=== PATIENT | male | born 1955 | race Two or more races ===

== ENCOUNTER 2018-11-27 00:04 | Inpatient (IN) | payer OTHER | END 2018-11-29 17:00 | disposition home or self-care (01) | LOC: ER 00:04 → TELE 00:05 → TELE-CENTR 08:00 | DX: I25.118 Atherosclerotic heart disease of native coronary artery with other forms of angina pectoris (principal); N17.9 Acute kidney failure, unspecified; E11.21 Type 2 diabetes mellitus with diabetic nephropathy; I50.20 Unspecified systolic (congestive) heart failure; I13.0 Hypertensive heart and chronic kidney disease with heart failure and stage 1 through stage 4 chronic kidney disease, or unspecified chronic kidney disease; M86.672 Other chronic osteomyelitis, left ankle and foot; E11.22 Type 2 diabetes mellitus with diabetic chronic kidney disease; N18.9 Chronic kidney disease, unspecified; Z95.1 Presence of aortocoronary bypass graft ==

== ENCOUNTER 2019-06-11 21:34 | Inpatient (IN) | payer OTHER ==
[~2019-06-11] VITALS: Ht 162.6 cm; Wt 107.8 kg
[~2019-06-11 21:34] MED LIST: AMPI500C8 PO; ASPI-404 PO; CARV3.1240 PO; CLOP75TA28 PO; FERR27TA2 PO; GABA100C9 PO; LEVO750T2 PO; LISI2.5T47 PO; METF-370 PO; SACC250C PO
[2019-06-11 22:25] LABS: Basophils # (auto) 0.2 10 ^3/uL (0-0.2); Basophils % (auto) 1.2 % (0.0-2.0); Eosinophils # (auto) 0.1 10 ^3/uL (0-0.8); Eosinophils % (auto) 1.1 % (0.0-7.0); Hematocrit 39.8 % (41.0-53.0); Hemoglobin 13.3 g/dL (13.5-17.5); Lymphocytes # (auto) 1.5 10 ^3/uL (0.4-5.4); Lymphocytes % (auto) 11.7 % (10.0-50.0); Mean Corpuscular Hemoglobin 28.9 pg (28.0-32.0); Mean Corpuscular Hgb Conc. 33.3 g/dL (32.0-36.0); Mean Corpuscular Volume 86.8 fL (80.0-100.0); Monocytes # (auto) 0.6 10 ^3/uL (0-1.3); Monocytes % (auto) 4.5 % (0.0-12.0); Neutrophils # (auto) 10.7 10 ^3/uL (1.6-8.6); Neutrophils % (auto) 81.5 % (37.0-80.0); Platelet Count (auto) 166 10^3/uL (140-450); Red Blood Cells 4.58 10^6/uL (4.5-5.90); Red Cell Distribution Width 14.8 % (11.8-14.3); White Blood Cell 13.1 10^3/uL (4.4-10.8)
[2019-06-11] MEDS ORDERED: ASPirin 81 mg TAB PO ONE (22:30)
[2019-06-11 22:44] LABS: Albumin 3.7 g/dL (3.4-5.0); BUN/Creatinine Ratio 15.3; Calcium 8.9 mg/dL (8.5-10.1); Potassium 4.1 mmol/L (3.5-5.1)
[2019-06-11 22:50] LABS: Bilirubin, Total 0.9 mg/dL (0.2-1.0); Magnesium 1.4 mg/dL (1.6-2.6); Total Protein 7.2 g/dL (6.4-8.2)
[2019-06-11 23:03] LABS: INR 1.04 (0.9-1.15); Partial Thromboplastin Time 26.1 sec (23.64-32.05)
[2019-06-12] MEDS ORDERED: POTASSIUM CHL 20MEQ/100ML 100 ML IV ONE (00:30)
[2019-06-12] MEDS ORDERED: THIAMINE INJ 100 MG in SODIUM CHLORIDE 0.9% 1,000 ML IV ONE (00:30)
[2019-06-12] MEDS ORDERED: POTASSIUM EFFERVESENT TAB 25 MEQ PO ONE (00:30)
[2019-06-12] MEDS ORDERED: ONDANSETRON HCL 4 MG/2 ML VIAL IV ONE (00:30)
[2019-06-12] MEDS ORDERED: THIAMINE 100mg/ml INJ (200mg/2ml VIAL) ONE (01:07)
[2019-06-12] MEDS ORDERED: levETIRAcetam 500 MG/5ML INJ IV ONE (01:08)
[2019-06-12] MEDS ORDERED: ENOXAPARIN SOD 80 MG/0.8ML SYRINGE SC ONE (01:30)
[2019-06-12] MEDS ORDERED: ACETAMINOPHEN 325 MG TAB PO PRN (02:45)
[2019-06-12] MEDS ORDERED: ATORVASTATIN 20 MG TAB PO ONE (02:45)
[2019-06-12] MEDS ORDERED: ONDANSETRON HCL 4 MG/2 ML VIAL IV PRN (02:45)
[2019-06-12] MEDS ORDERED: DEXTROSE (50%) 50ML SYRG IV PRN (02:45)
[2019-06-12] MEDS ORDERED: MORPHINE SULF INJ 2 MG/ML SYRINGE 1ML IV PRN (02:45)
[2019-06-12] MEDS ORDERED: TEMAZEPAM 15 MG CAP PO PRN (02:45)
[2019-06-12] MEDS ORDERED: NITROGLYCERIN 0.4 MG SL TAB SL PRN (02:45)
[2019-06-12] MEDS: SODIUM CHLORIDE 0.9% 1,000 ML IV SCH ×2 (02:54→19:15)
[2019-06-12 03:47] LABS: BUN/Creatinine Ratio 16.8; Calcium 8.6 mg/dL (8.5-10.1); Potassium 3.5 mmol/L (3.5-5.1)
[2019-06-12] MEDS: ACCU-CHEK COMFORT CURVE STRIP VI SCH ×4 (05:40→23:42)
[2019-06-12] MEDS: InsuLIN REG 1unit/0.01ml Soln (100units/ml) SC SCH ×4 (05:45→23:43)
[2019-06-12 07:26] LABS: Amphetamine Screen, Urine NEGATIVE (NEGATIVE); Barbiturate Scree,Urine NEGATIVE (NEGATIVE); Benzodiazephine Screen, Urine NEGATIVE (NEGATIVE); Cannabinoid Screen, Urine NEGATIVE (NEGATIVE); Cocaine Screen, Urine NEGATIVE (NEGATIVE); Opiate Scree,Urine NEGATIVE (NEGATIVE); Phencyclidine Screen, Urine NEGATIVE (NEGATIVE)
[2019-06-12 07:32] LABS: Alcohol, Urine < 3.0 mg/dL (0-5)
[2019-06-12] MEDS: MAGNESIUM SULFATE 1GM/100ML 100 ML IV SCH ×2 (08:23→10:31)
[2019-06-12] MEDS ORDERED: HEPARIN DRIP/D5W 100UNITS/ML 250 ML IV SCH (08:56)
[2019-06-12] MEDS ORDERED: HEPARIN SODIUM (PORCINE) 5000 UNITS/ML 1ML VIAL IV ONE (09:00)
[2019-06-12] MEDS ORDERED: LISINOPRIL 5 MG TAB PO SCH (10:00)
[2019-06-12] MEDS: ASPirin 81 mg TAB PO SCH (10:54)
[2019-06-12] MEDS: FUROSEMIDE 20 MG/2 ML VIAL IV SCH (10:54)
[2019-06-12] MEDS: CARVEDILOL 3.125 MG TAB PO SCH ×2 (10:55→20:41)
[2019-06-12] MEDS: CLOPIDOGREL BISULFATE 75 MG TAB PO SCH (10:56)
[2019-06-12] MEDS ORDERED: ENOXAPARIN SOD 100 MG/1 ML SYRINGE SC SCH (14:00)
[2019-06-12 17:13] LABS: INR 1.09 (0.9-1.15); Partial Thromboplastin Time 53.3 sec (23.64-32.05)
[2019-06-12 18:06] VITALS: BP 113/61
[2019-06-12 19:34] VITALS: BP 113/61
[2019-06-12 20:00] VITALS: BP 117/56
[2019-06-12] MEDS: ATORVASTATIN 20 MG TAB PO SCH (20:41)
[2019-06-12] MEDS: GABAPENTIN 400 MG CAP PO SCH (20:42)
[2019-06-12] MEDS ORDERED: ATORVASTATIN 20 MG TAB PO SCH (22:00)
[2019-06-12 22:29] LABS: INR 1.09 (0.9-1.15); Partial Thromboplastin Time 48.5 sec (23.64-32.05)
[2019-06-13] VITALS (7 sets, daily range): BP systolic 98–134; BP diastolic 45–88
[2019-06-13] MEDS ORDERED: SODIUM CHLORIDE 0.9% 500 ML IV SCH (00:01)
[2019-06-13] MEDS: ACCU-CHEK COMFORT CURVE STRIP VI SCH ×3 (05:04→18:24)
[2019-06-13] MEDS: GABAPENTIN 400 MG CAP PO SCH ×3 (05:04→22:44)
[2019-06-13] MEDS: InsuLIN REG 1unit/0.01ml Soln (100units/ml) SC SCH ×3 (05:05→18:25)
[2019-06-13 05:28] LABS: Basophils # (auto) 0 10 ^3/uL (0-0.2); Basophils % (auto) 0.5 % (0.0-2.0); Eosinophils # (auto) 0.2 10 ^3/uL (0-0.8); Eosinophils % (auto) 2.4 % (0.0-7.0); Hematocrit 36.4 % (41.0-53.0); Hemoglobin 12.6 g/dL (13.5-17.5); Lymphocytes # (auto) 2.1 10 ^3/uL (0.4-5.4); Lymphocytes % (auto) 22.7 % (10.0-50.0); Mean Corpuscular Hemoglobin 29.9 pg (28.0-32.0); Mean Corpuscular Hgb Conc. 34.6 g/dL (32.0-36.0); Mean Corpuscular Volume 86.2 fL (80.0-100.0); Monocytes # (auto) 0.8 10 ^3/uL (0-1.3); Monocytes % (auto) 8.5 % (0.0-12.0); Neutrophils # (auto) 6.2 10 ^3/uL (1.6-8.6); Neutrophils % (auto) 65.9 % (37.0-80.0); Platelet Count (auto) 150 10^3/uL (140-450); Red Blood Cells 4.22 10^6/uL (4.5-5.90); Red Cell Distribution Width 14.9 % (11.8-14.3); White Blood Cell 9.4 10^3/uL (4.4-10.8)
[2019-06-13 05:40] LABS: INR 1.07 (0.9-1.15); Partial Thromboplastin Time 54.4 sec (23.64-32.05)
[2019-06-13 05:49] LABS: Calcium 8.6 mg/dL (8.5-10.1); Magnesium 2.1 mg/dL (1.6-2.6); Potassium 3.2 mmol/L (3.5-5.1)
[2019-06-13 05:56] LABS: BUN/Creatinine Ratio 14.5
[2019-06-13] MEDS ORDERED: LIDOCAINE 2%HCL (LOCAL ANESTH.) INJ 20ML MDV ONE (07:13)
[2019-06-13] MEDS ORDERED: IOHEXOL 350 MG/ML 100ML IJ ONE ×2 (07:13→07:48)
[2019-06-13] MEDS ORDERED: ANGIOMAX 250 MG VIAL IV ONE (07:47)
[2019-06-13] MEDS ORDERED: MIDAZOLAM HCL 1MG/1ML-2 ML VIAL ONE (07:48)
[2019-06-13] MEDS ORDERED: SODIUM CHL 0.9% 0 ML ONE (07:48)
[2019-06-13] MEDS ORDERED: fentaNYL CITRATE 100 MCG/2 ML VL ONE (07:48)
[2019-06-13] MEDS ORDERED: HEPARIN SODIUM (PORCINE) 5000 UNITS/ML 1ML VIAL ONE (08:48)
[2019-06-13] MEDS ORDERED: FUROSEMIDE 20 MG/2 ML VIAL ONE (09:23)
[2019-06-13] MEDS ORDERED: CARVEDILOL 3.125 MG TAB PO SCH (10:00)
[2019-06-13] MEDS: FUROSEMIDE 20 MG/2 ML VIAL IV SCH (10:00)
[2019-06-13] MEDS: SACUBITRIL-VALSARTAN 24mg/26mg TAB PO SCH ×2 (10:00→22:00)
[2019-06-13] MEDS: CARVEDILOL 3.125 MG TAB PO SCH ×2 (10:00→22:45)
[2019-06-13] MEDS: CLOPIDOGREL BISULFATE 75 MG TAB PO SCH (10:45)
[2019-06-13] MEDS: ASPirin 81 mg TAB PO SCH (10:46)
[2019-06-13 11:38] LABS: INR 1.05 (0.9-1.15); Partial Thromboplastin Time 33.4 sec (23.64-32.05)
[2019-06-13] MEDS ORDERED: POTASSIUM CHL 20 Meq TABLET PO ONE (17:00)
[2019-06-13] MEDS: ATORVASTATIN 20 MG TAB PO SCH (22:44)
[2019-06-14 00:42] VITALS: BP 128/67
[2019-06-14] MEDS: InsuLIN REG 1unit/0.01ml Soln (100units/ml) SC SCH ×3 (00:53→12:48)
[2019-06-14 05:00] VITALS: BP 110/71
[2019-06-14] MEDS: ACCU-CHEK COMFORT CURVE STRIP VI SCH ×3 (06:07→12:29)
[2019-06-14] MEDS: GABAPENTIN 400 MG CAP PO SCH ×2 (06:20→14:03)
[2019-06-14 09:00] VITALS: BP 151/86
[2019-06-14] MEDS: SACUBITRIL-VALSARTAN 24mg/26mg TAB PO SCH (09:42)
[2019-06-14] MEDS: CARVEDILOL 3.125 MG TAB PO SCH (09:43)
[2019-06-14] MEDS: CLOPIDOGREL BISULFATE 75 MG TAB PO SCH (09:43)
[2019-06-14] MEDS ORDERED: ASPirin 81 mg TAB PO SCH (10:00)
[2019-06-14 10:33] LABS: Basophils # (auto) 0.1 10 ^3/uL (0-0.2); Basophils % (auto) 0.9 % (0.0-2.0); Eosinophils # (auto) 0.3 10 ^3/uL (0-0.8); Eosinophils % (auto) 3.6 % (0.0-7.0); Hematocrit 37.3 % (41.0-53.0); Hemoglobin 12.5 g/dL (13.5-17.5); Lymphocytes # (auto) 1.5 10 ^3/uL (0.4-5.4); Lymphocytes % (auto) 20.5 % (10.0-50.0); Mean Corpuscular Hemoglobin 29.2 pg (28.0-32.0); Mean Corpuscular Hgb Conc. 33.4 g/dL (32.0-36.0); Mean Corpuscular Volume 87.3 fL (80.0-100.0); Monocytes # (auto) 0.6 10 ^3/uL (0-1.3); Monocytes % (auto) 8.1 % (0.0-12.0); Neutrophils # (auto) 4.7 10 ^3/uL (1.6-8.6); Neutrophils % (auto) 66.9 % (37.0-80.0); Platelet Count (auto) 153 10^3/uL (140-450); Red Blood Cells 4.27 10^6/uL (4.5-5.90); Red Cell Distribution Width 14.9 % (11.8-14.3); White Blood Cell 7.1 10^3/uL (4.4-10.8)
[2019-06-14 10:57] LABS: BUN/Creatinine Ratio 14.4; Calcium 8.9 mg/dL (8.5-10.1); Potassium 4.2 mmol/L (3.5-5.1)
[2019-06-14 14:16] VITALS: BP 112/57
== END 2019-06-14 16:25 | disposition home or self-care (01) | DRG 174 ==
LOC: EDBD 21:34 → ER 21:35 → TELE 21:36 → DOU IN ICU 06-12 17:49 → TELE-CENTR 06-13 17:16
PROVIDERS: ADMIT Nurse Practitioner; ATTEND Internal Medicine
PROC: 4A023N7 Measurement of Cardiac Sampling and Pressure, Left Heart, Percutaneous Approach (ICD-10-PCS; principal; 2019-06-13)
PROC: B211YZZ Fluoroscopy of Multiple Coronary Arteries using Other Contrast (ICD-10-PCS; 2019-06-13)
PROC: B213YZZ Fluoroscopy of Multiple Coronary Artery Bypass Grafts using Other Contrast (ICD-10-PCS; 2019-06-13)
PROC: 027034Z Dilation of Coronary Artery, One Artery with Drug-eluting Intraluminal Device, Percutaneous Approach (ICD-10-PCS; 2019-06-13)
PROC: B218YZZ Fluoroscopy of Left Internal Mammary Bypass Graft using Other Contrast (ICD-10-PCS; 2019-06-13)
PROC: B215YZZ Fluoroscopy of Left Heart using Other Contrast (ICD-10-PCS; 2019-06-13)
DX: I21.4 Non-ST elevation (NSTEMI) myocardial infarction (principal); N17.0 Acute kidney failure with tubular necrosis; I50.43 Acute on chronic combined systolic (congestive) and diastolic (congestive) heart failure; I25.810 Atherosclerosis of coronary artery bypass graft(s) without angina pectoris; E11.22 Type 2 diabetes mellitus with diabetic chronic kidney disease; Z68.41 Body mass index [BMI] 40.0-44.9, adult; N18.3 Chronic kidney disease, stage 3 (moderate); E66.9 Obesity, unspecified; E11.51 Type 2 diabetes mellitus with diabetic peripheral angiopathy without gangrene; E11.40 Type 2 diabetes mellitus with diabetic neuropathy, unspecified; I42.9 Cardiomyopathy, unspecified; I13.0 Hypertensive heart and chronic kidney disease with heart failure and stage 1 through stage 4 chronic kidney disease, or unspecified chronic kidney disease; D63.8 Anemia in other chronic diseases classified elsewhere; Z95.1 Presence of aortocoronary bypass graft; Z98.61 Coronary angioplasty status; Z79.899 Other long term (current) drug therapy; Z91.030 Bee allergy status
CPT/HCPCS: 36415; 71045; 80048; 80053; 80307; 82962; 83735; 83880; 84484; 85025; 85379; 85610; 85730; 87081; 92937; 93005; 93459; 93926; 96365; 96367; 96372; 99152; 99153; C1874; G0378; J1815; J2250; J2405; J3480; J7060

== ENCOUNTER 2020-02-16 15:21 | Inpatient (IN) | payer OTHER ==
[~2020-02-16] VITALS: Ht 172.7 cm; Wt 103.0 kg
[~2020-02-16 15:21] MED LIST changes: -ASPI-404 PO; +ASPI-543 PO; -LEVO750T2 PO; +LEVO750T8 PO; -LISI2.5T47 PO
[2020-02-16] MEDS ORDERED: SODIUM CHLORIDE 0.9% 1,000 ML IV ONE ×2 (17:15)
[2020-02-16] MEDS ORDERED: ACETAMINOPHEN 500 MG TAB PO PRN (17:15)
[2020-02-16] MEDS ORDERED: SODIUM CHLORIDE 0.9% 1,000 ML IV SCH (17:15)
[2020-02-16] MEDS ORDERED: MORPHINE SULF INJ 2 MG/ML SYRINGE 1ML IV PRN (17:15)
[2020-02-16] MEDS ORDERED: NITROGLYCERIN 0.4 MG SL TAB SL PRN (17:15)
[2020-02-16] MEDS ORDERED: PIPERACILLIN-TAZOB 3.375GM 100 ML IV ONE (17:15)
[2020-02-16 17:47] LABS: Urine WBC None Seen /hpf (0 - 3)
[2020-02-16 18:15] LABS: Basophils # (auto) 0.1 10 ^3/uL (0-0.2); Basophils % (auto) 0.9 % (0.0-2.0); Eosinophils # (auto) 0 10 ^3/uL (0-0.8); Eosinophils % (auto) 0.3 % (0.0-7.0); Hematocrit 39.2 % (41.0-53.0); Hemoglobin 13.5 g/dL (13.5-17.5); Lymphocytes % (auto) 8.3 % (10.0-50.0); Mean Corpuscular Hemoglobin 29.5 pg (28.0-32.0); Mean Corpuscular Hgb Conc. 34.5 g/dL (32.0-36.0); Mean Corpuscular Volume 85.6 fL (80.0-100.0); Monocytes # (auto) 0.7 10 ^3/uL (0-1.3); Monocytes % (auto) 6.1 % (0.0-12.0); Neutrophils % (auto) 84.4 % (37.0-80.0); Platelet Count (auto) 172 10^3/uL (140-450); Red Blood Cells 4.57 10^6/uL (4.5-5.90); Red Cell Distribution Width 14.6 % (11.8-14.3); White Blood Cell 11.8 10^3/uL (4.4-10.8)
[2020-02-16 18:31] LABS: Albumin 3.1 g/dL (3.4-5.0); Calcium 8.7 mg/dL (8.5-10.1); Magnesium 1.2 mg/dL (1.6-2.6); Potassium 3.8 mmol/L (3.5-5.1)
[2020-02-16 18:34] LABS: Urine Bacteria NONE SEEN /hpf (None Seen); Urine Blood 1+ /uL (Negative); Urine Specific Gravity 1.024 (1.001-1.035)
[2020-02-16 18:40] LABS: BUN/Creatinine Ratio 10.9; Bilirubin, Total 1.4 mg/dL (0.2-1.0); CRP High Sensitivity 1.79 mg/dL (< 0.3)
[2020-02-16 18:52] LABS: INR 1.02 (0.9-1.15); Partial Thromboplastin Time 27.4 sec (23.0-31.2)
[2020-02-16 21:50] VITALS: BP 152/89
--- NOTE | 2020-02-16 21:50 | NUR ---
Telemetry admit from YESSI GALLARDO admitted to Telemetry unit after SBAR received. Patient oriented to SAGE MESSINA, RN primary RN, unit, room, bed, and unit policies regarding patient care and visiting hours. Patient now on continuous telemetry monitoring, tele box # 2 and telemetry reading on arrival to unit is SR-70's. Patient placed on bedside oxygen, weighed by bedscale and encouraged to call if they need something. All questions and concerns addressed, patient verbalized understanding.
[2020-02-16] MEDS: BUDESONIDE (INHALATION) 180 MCG IH IN SCH (22:00)
[2020-02-16] MEDS: ALBUTEROL SULF HFA 90MCG INH 200DOSE IN SCH (22:00)
[2020-02-16 22:13] VITALS: BP 152/89
[2020-02-16] MEDS: DOXYCYCLINE 100MG/250ML 250 ML IV SCH (22:26)
--- NOTE | 2020-02-16 22:30 | NUR ---
Admission Patient does not know all home medication doses. will endorse to dayshift nurse.
--- NOTE | 2020-02-16 23:30 | NUR ---
In House Covid Swab In house covid swab taken and walked down to lab.
[2020-02-17] MEDS ORDERED: FUROSEMIDE 100 MG/10ML VIAL IV ONE (00:15)
[2020-02-17] MEDS ORDERED: HYDROcodone-ACET 5/325MG TAB PO PRN (00:15)
[2020-02-17] MEDS ORDERED: NITROGLYCERIN 0.4 MG SL TAB SL PRN (00:15)
[2020-02-17] MEDS ORDERED: DOCUSATE SOD 100 MG CAP PO PRN (00:15)
[2020-02-17] MEDS ORDERED: ONDANSETRON HCL 4 MG/2 ML VIAL IV PRN (00:15)
[2020-02-17] MEDS ORDERED: ALUM & MAG HYDROX-SIMETH LIQ(MAALOX) 30 ML PO PRN (00:15)
[2020-02-17] MEDS ORDERED: LORazepam 0.5 MG TAB PO PRN (00:15)
[2020-02-17] MEDS ORDERED: DEXTROSE (50%) 50ML SYRG IV PRN (00:15)
[2020-02-17] MEDS ORDERED: MORPHINE SULF INJ 2 MG/ML SYRINGE 1ML IV PRN ×2 (00:15)
[2020-02-17] MEDS ORDERED: ACETAMINOPHEN 325 MG TAB PO PRN (00:15)
[2020-02-17 00:47] VITALS: BP 152/89
[2020-02-17] MEDS: MAGNESIUM SULFATE 1GM/100ML 100 ML IV SCH ×3 (02:43→06:11)
[2020-02-17 04:12] LABS: Urine Bacteria FEW /hpf (None Seen); Urine Blood TRACE /uL (Negative); Urine Specific Gravity 1.007 (1.001-1.035); Urine WBC <1 /hpf (0 - 3)
[2020-02-17 04:20] LABS: Alcohol, Urine < 3.0 mg/dL (0-10); Amphetamine Screen, Urine NEGATIVE (NEGATIVE); Barbiturate Scree,Urine NEGATIVE (NEGATIVE); Benzodiazephine Screen, Urine NEGATIVE (NEGATIVE); Cannabinoid Screen, Urine NEGATIVE (NEGATIVE); Cocaine Screen, Urine NEGATIVE (NEGATIVE); Opiate Scree,Urine NEGATIVE (NEGATIVE); Phencyclidine Screen, Urine NEGATIVE (NEGATIVE)
[2020-02-17 05:00] VITALS: BP 159/92
[2020-02-17] MEDS: FUROSEMIDE 40 MG/4 ML VIAL IV SCH ×2 (06:00→17:46)
--- NOTE | 2020-02-17 06:00 | NUR ---
Lasix Refusal Patient refusal 06 kashmir, he said "I don't want it because I took it not to long ago". Educated patient but still refused.
[2020-02-17] MEDS ORDERED: MAGNESIUM SULFATE 1GM/100ML 100 ML IV ONE (06:07)
[2020-02-17] MEDS: GABAPENTIN 100 MG CAP PO SCH ×3 (06:12→22:06)
[2020-02-17] MEDS: hydrALAZINE HCL 20 MG/ML VL IV PRN ×2 (06:12→22:05)
[2020-02-17] MEDS: ACCU-CHEK COMFORT CURVE STRIP VI SCH ×4 (06:13→22:06)
[2020-02-17] MEDS: InsuLIN REG 1unit/0.01ml Soln (100units/ml) SC SCH ×4 (06:13→22:07)
[2020-02-17] MEDS: ALBUTEROL SULF HFA 90MCG INH 200DOSE IN SCH (06:25)
[2020-02-17] MEDS: BUDESONIDE (INHALATION) 180 MCG IH IN SCH (06:25)
[2020-02-17 06:42] LABS: Basophils # (auto) 0 10 ^3/uL (0-0.2); Basophils % (auto) 0.5 % (0.0-2.0); Eosinophils # (auto) 0.1 10 ^3/uL (0-0.8); Eosinophils % (auto) 0.7 % (0.0-7.0); Hematocrit 38.6 % (41.0-53.0); Hemoglobin 13.2 g/dL (13.5-17.5); Lymphocytes # (auto) 1.3 10 ^3/uL (0.4-5.4); Lymphocytes % (auto) 14.7 % (10.0-50.0); Mean Corpuscular Hemoglobin 29.3 pg (28.0-32.0); Mean Corpuscular Hgb Conc. 34.2 g/dL (32.0-36.0); Mean Corpuscular Volume 85.7 fL (80.0-100.0); Monocytes # (auto) 0.7 10 ^3/uL (0-1.3); Monocytes % (auto) 7.6 % (0.0-12.0); Neutrophils # (auto) 6.7 10 ^3/uL (1.6-8.6); Neutrophils % (auto) 76.5 % (37.0-80.0); Nucleated Red Blood Cells % 0.1 %; Platelet Count (auto) 187 10^3/uL (140-450); Red Cell Distribution Width 14.5 % (11.8-14.3); White Blood Cell 8.7 10^3/uL (4.4-10.8)
[2020-02-17 06:59] LABS: Albumin 2.9 g/dL (3.4-5.0); Calcium 8.2 mg/dL (8.5-10.1); Potassium 3.2 mmol/L (3.5-5.1)
[2020-02-17 07:06] LABS: BUN/Creatinine Ratio 9.8; Bilirubin, Total 1.6 mg/dL (0.2-1.0); Total Protein 6.6 g/dL (6.4-8.2)
--- NOTE | 2020-02-17 07:40 | NUR ---
opening note Assumed care of patient from NOC RN Magnolia. No s/s of distress noted. Bed is in lowest locked position, call light is within reach and side rails up x2. Updated patient on plan of care and patient verbalized understanding. Will continue to monitor q1hr and PRN.
[2020-02-17 08:31] VITALS: BP 128/74
[2020-02-17] MEDS: DexAMETHasone SOD PHOS 10MG/1ML VIAL INJ IV SCH ×2 (09:45→10:00)
[2020-02-17] MEDS: ASPirin 81 mg TAB PO SCH (09:45)
[2020-02-17] MEDS: DOXYCYCLINE 100MG/250ML 250 ML IV SCH (09:45)
[2020-02-17] MEDS: CARVEDILOL 3.125 MG TAB PO SCH ×2 (09:46→22:05)
[2020-02-17] MEDS: FLORASTOR (S. BOULARDII) 250 MG CAP PO SCH (09:47)
[2020-02-17] MEDS: ENOXAPARIN SOD 40 MG/0.4 ML SYRINGE SC SCH ×2 (09:48→10:00)
[2020-02-17] MEDS: LISINOPRIL 5 MG TAB PO SCH (09:48)
[2020-02-17] MEDS ORDERED: ASCORBIC ACID 1,000 MG TAB PO SCH (10:00)
[2020-02-17] MEDS ORDERED: ZINC SULFATE 220mg CAP or TAB PO SCH (10:00)
[2020-02-17] MEDS ORDERED: CHOLECALCIFEROL (VITD3) 2,000 UNIT CAP PO SCH (10:00)
--- NOTE | 2020-02-17 10:01 | NUR ---
refusal patient refused Decadron, and Lovenox. patient stated "I'm not comfortable taking those medications, if i don't even know what my covid results are i rather not." Educated patient on the risk of refusal, patient verbalized understanding, but still refusing.
--- NOTE | 2020-02-17 10:49 | NUR ---
Nutrition Consult/assessment Note please see attached link for complete assessment Est energy needs ABW 86 [id number] 5 kcal (23-25 kcal/kg ABW), Est protein needs: 86-94g (1.0-1.1 g/kg ABW). Will reassess prn. Addendum: 02/17/20 at [address] Amended: Links added.
[2020-02-17] MEDS ORDERED: POTASSIUM EFFERVESENT TAB 25 MEQ PO ONE (12:00)
--- NOTE | 2020-02-17 12:00 | NUR ---
WOUND CARE NOTE: IN TO SEE PATIENT AT THIS TIME PER WOUND CARE CONSULT REQUEST. PATIENT ADMITTED TO [facility] WITH DIAGNOSIS OF ACUTE PNA, R/O COVID 19. WOUND PHOTOS TAKEN UPON ADMIT BY BEDSIDE NURSE FOR REFERENCE. CURRENT ANA MARIA SCORE IS 17. PATIENT IS FULLY AMBULATORY. PATIENT STATES THAT HE IS DIABETIC, WITH CHRONIC DFU ULCERS TO BILATERAL FEET THAT ARE BEING MANAGED AT [facility]. PATIENT HAS OSTEOMYELITIS TO HIS LEFT FOOT STUMP. RIGHT FOOT HAS CALLOUSED DFU TO THE RIGHT # 5 TOE STUMP. THERE IS AN OPEN WOUND, MEASURING 1 X 1 X 0.5 CM, WITHIN CALLOUSED WOUND. LEFT TRANSMETATARSAL STUMP IS NOTED TO HAVE A LARGED CALLOUSED DFU, WITH AN OPEN AREA MEASURING 0.7 X 1.2 X 0.7 CM. THERE IS PALPABLE BONE NOTED WITHIN WOUND BED. ALL WOUND STATS CAN BE FOUND WITHIN WOUND ASSESSMENT INTERVENTION, LINKED TO THIS NOTE. PACKED WOUNDS WITH THERAHONEY GAUZE, COVERING WOUND WITH OPTIFOAM AG. WRAPPED EACH FOOT WITH LARGE KERLIX, SECURED WITH TAPE. RECOMMEND: EOD/PRN DRESSING CHANGE, DIETARY CONSULT, SKIN/WOUND CARE PLAN, CONTINUED MONITORING BY WOUND CARE TEAM. Addendum: 02/17/20 at 1608 by Nataliia Joyner RN Amended: Links added.
--- NOTE | 2020-02-17 12:45 | NUR ---
physician rounding Dr Sanchez at bedside. MD updated patient on plan of care and patient verbalized understanding. New orders received, will follow though.
[2020-02-17 13:00] VITALS: BP 138/82
[2020-02-17 17:05] VITALS: BP 121/76
--- NOTE | 2020-02-17 19:00 | NUR ---
end of shift note Endorsed care to NOC RN. No s/s of distress noted. NOC RN aware that patient is negative and that day shift Charge was notified.
--- NOTE | 2020-02-17 19:30 | NUR ---
Opening Shift Note Assumed care of patient, awake and alert. No S/S of distress/SOB or pain. Instructed on POC and to call for assist PRN, will continue to monitor for changes Q1hr and PRN. Patient aware of being transferred to a different unit
--- NOTE | 2020-02-17 19:40 | NUR ---
Patient Transferred Patient transferred via wheelchair, patient tolerated well. No status change.
--- NOTE | 2020-02-17 20:32 | NUR ---
Report/SBAR Report/Sbar given to nurse Moya.
--- NOTE | 2020-02-17 20:35 | NUR ---
Patient transferred from [facility] results negative. SBAR received. Patient tolerated transfer well. Will orient patient to unit and get new telemetry box from emergency medical technician. No pain or SOB noted from patient. Patient in the lowest possible position with call light within reach.
[2020-02-17 22:00] VITALS: BP 156/88
[2020-02-17] MEDS: ATORVASTATIN 20 MG TAB PO SCH (22:16)
[2020-02-18] VITALS (7 sets, daily range): BP systolic 122–155; BP diastolic 71–90
[2020-02-18] MEDS: FUROSEMIDE 40 MG/4 ML VIAL IV SCH ×2 (05:55→18:00)
[2020-02-18] MEDS: GABAPENTIN 100 MG CAP PO SCH ×3 (05:56→21:53)
[2020-02-18 06:18] LABS: Basophils # (auto) 0.1 10 ^3/uL (0-0.2); Basophils % (auto) 0.7 % (0.0-2.0); Eosinophils # (auto) 0.3 10 ^3/uL (0-0.8); Eosinophils % (auto) 3.4 % (0.0-7.0); Hematocrit 38.3 % (41.0-53.0); Hemoglobin 13.4 g/dL (13.5-17.5); Lymphocytes % (auto) 24.9 % (10.0-50.0); Mean Corpuscular Hemoglobin 29.9 pg (28.0-32.0); Mean Corpuscular Volume 85.4 fL (80.0-100.0); Monocytes # (auto) 0.8 10 ^3/uL (0-1.3); Monocytes % (auto) 10.6 % (0.0-12.0); Neutrophils # (auto) 4.7 10 ^3/uL (1.6-8.6); Neutrophils % (auto) 60.4 % (37.0-80.0); Nucleated Red Blood Cells % 0.2 %; Platelet Count (auto) 192 10^3/uL (140-450); Red Blood Cells 4.49 10^6/uL (4.5-5.90); Red Cell Distribution Width 14.8 % (11.8-14.3); White Blood Cell 7.8 10^3/uL (4.4-10.8)
[2020-02-18] MEDS: ACCU-CHEK COMFORT CURVE STRIP VI SCH ×4 (06:22→21:53)
[2020-02-18] MEDS: InsuLIN REG 1unit/0.01ml Soln (100units/ml) SC SCH ×4 (06:22→21:53)
[2020-02-18 06:40] LABS: BUN/Creatinine Ratio 14.6; Calcium 8.7 mg/dL (8.5-10.1); Potassium 3.4 mmol/L (3.5-5.1)
--- NOTE | 2020-02-18 07:45 | NUR ---
Opening Shift Note Assumed care of patient, awake and alert. No S/S of distress/SOB or pain. Instructed on POC and to call for assist PRN, will continue to monitor for changes Q1hr and PRN. Fall precaution in place per safety protocol.
[2020-02-18] MEDS: CARVEDILOL 3.125 MG TAB PO SCH ×2 (10:06→21:53)
[2020-02-18] MEDS: ASPirin 81 mg TAB PO SCH (10:06)
[2020-02-18] MEDS: cefTRIAXone 1GM/50ML D5W 50 ML IV SCH ×2 (10:06→22:44)
[2020-02-18] MEDS: LISINOPRIL 5 MG TAB PO SCH (10:07)
[2020-02-18] MEDS: FLORASTOR (S. BOULARDII) 250 MG CAP PO SCH (10:07)
[2020-02-18] MEDS: hydrALAZINE HCL 20 MG/ML VL IV PRN (14:25)
[2020-02-18] MEDS ORDERED: POTASSIUM EFFERVESENT TAB 25 MEQ PO ONE (19:00)
--- NOTE | 2020-02-18 19:00 | NUR ---
Opening Shift Note Assumed care of patient, awake and alert. No S/S of distress/SOB or pain. Instructed on POC and to call for assist PRN, will continue to monitor for changes Q1hr and PRN. Patient in the lowest possible position with call light within reach.
[2020-02-18] MEDS: ATORVASTATIN 20 MG TAB PO SCH (21:53)
--- NOTE | 2020-02-18 22:30 | NUR ---
IV insertion IV access obtained, via clean sterile technique by inserting 22 gauge catheter at the right forearm after 2 attempts. IV secured properly. No trauma to site. Patient tolerated well.
--- NOTE | 2020-02-19 00:54 | NUR ---
Patient has diabetic ulcers on feet bilaterally. Patient dressing to be changed EOD/PRN, at this time patients dressing is intact. Will continue to monitor. Addendum: 02/19/20 at 0056 by Nita Gallardo RN Amended: Links added.
[2020-02-19 05:00] VITALS: BP 131/73
[2020-02-19] MEDS: GABAPENTIN 100 MG CAP PO SCH (05:58)
[2020-02-19] MEDS: FUROSEMIDE 40 MG/4 ML VIAL IV SCH (05:58)
[2020-02-19 06:03] LABS: Basophils # (auto) 0 10 ^3/uL (0-0.2); Basophils % (auto) 0.7 % (0.0-2.0); Eosinophils # (auto) 0.3 10 ^3/uL (0-0.8); Eosinophils % (auto) 3.4 % (0.0-7.0); Hematocrit 38.7 % (41.0-53.0); Hemoglobin 13.3 g/dL (13.5-17.5); Lymphocytes # (auto) 2.4 10 ^3/uL (0.4-5.4); Mean Corpuscular Hemoglobin 29.4 pg (28.0-32.0); Mean Corpuscular Hgb Conc. 34.3 g/dL (32.0-36.0); Mean Corpuscular Volume 85.7 fL (80.0-100.0); Monocytes # (auto) 0.7 10 ^3/uL (0-1.3); Monocytes % (auto) 9.5 % (0.0-12.0); Neutrophils # (auto) 4.1 10 ^3/uL (1.6-8.6); Neutrophils % (auto) 54.4 % (37.0-80.0); Nucleated Red Blood Cells % 0.2 %; Platelet Count (auto) 219 10^3/uL (140-450); Red Blood Cells 4.52 10^6/uL (4.5-5.90); Red Cell Distribution Width 14.4 % (11.8-14.3); White Blood Cell 7.6 10^3/uL (4.4-10.8)
[2020-02-19] MEDS: ACCU-CHEK COMFORT CURVE STRIP VI SCH ×2 (06:20→11:30)
[2020-02-19] MEDS: InsuLIN REG 1unit/0.01ml Soln (100units/ml) SC SCH ×2 (06:23→12:04)
[2020-02-19 06:24] LABS: Calcium 9.3 mg/dL (8.5-10.1); Potassium 3.6 mmol/L (3.5-5.1)
[2020-02-19 06:27] LABS: BUN/Creatinine Ratio 17.8
--- NOTE | 2020-02-19 07:30 | NUR ---
Opening Shift Note Assumed care of patient, awake and alert. No S/S of distress/SOB or pain. Instructed on POC and to call for assist PRN, will continue to monitor for changes Q1hr and PRN. Fall precaution sin place per safety protocol.
[2020-02-19 09:00] VITALS: BP 106/61
[2020-02-19] MEDS: cefTRIAXone 1GM/50ML D5W 50 ML IV SCH (09:16)
[2020-02-19] MEDS: FLORASTOR (S. BOULARDII) 250 MG CAP PO SCH (09:16)
[2020-02-19] MEDS: CARVEDILOL 3.125 MG TAB PO SCH (09:17)
[2020-02-19] MEDS: LISINOPRIL 5 MG TAB PO SCH (09:17)
[2020-02-19] MEDS: ASPirin 81 mg TAB PO SCH (09:18)
[2020-02-19] MEDS ORDERED: SULF400T11 PO (10:59)
[2020-02-19 12:07] VITALS: BP 145/91
--- NOTE | 2020-02-19 13:20 | NUR ---
Wound care Wound care done per orders. Patient tolerated well. Discharge wound photos taken. Will carry on with Discharge orders.
--- NOTE | 2020-02-19 13:22 | NUR ---
Discharge instructions given as ordered. Encourage to follow up with PMD as instructed. All questions and concerns addressed. Patient verbalized understanding. Medication reconciliation form completed and copy given to patient. IV removed with catheter intact, pressure dressing applied. Telemetry unit returned to ICU. Patient taken to vehicle via wheelchair with all personal belongings, accompanied by staff. No distress noted at time of departure.
== END 2020-02-19 13:30 | disposition home or self-care (01) | DRG 133 ==
LOC: EDBD 15:21 → ER 15:24 → TELE 17:20 → TELE-EAST 21:17 → TELE-WESTW 02-17 20:45
PROVIDERS: ADMIT Hospitalist; ATTEND Internal Medicine Pulmonary Disease
DX: J96.01 Acute respiratory failure with hypoxia (principal); I13.0 Hypertensive heart and chronic kidney disease with heart failure and stage 1 through stage 4 chronic kidney disease, or unspecified chronic kidney disease; I50.23 Acute on chronic systolic (congestive) heart failure; J81.0 Acute pulmonary edema; E11.65 Type 2 diabetes mellitus with hyperglycemia; I25.5 Ischemic cardiomyopathy; E66.01 Morbid (severe) obesity due to excess calories; E44.1 Mild protein-calorie malnutrition; N18.9 Chronic kidney disease, unspecified; D72.829 Elevated white blood cell count, unspecified; E11.40 Type 2 diabetes mellitus with diabetic neuropathy, unspecified; Z95.1 Presence of aortocoronary bypass graft; I25.10 Atherosclerotic heart disease of native coronary artery without angina pectoris; E11.51 Type 2 diabetes mellitus with diabetic peripheral angiopathy without gangrene; E11.22 Type 2 diabetes mellitus with diabetic chronic kidney disease; N39.0 Urinary tract infection, site not specified; Z82.49 Family history of ischemic heart disease and other diseases of the circulatory system; Z83.3 Family history of diabetes mellitus; Z79.84 Long term (current) use of oral hypoglycemic drugs; I50.82 Biventricular heart failure; Z68.34 Body mass index [BMI] 34.0-34.9, adult; Z91.030 Bee allergy status; Z79.82 Long term (current) use of aspirin; I25.2 Old myocardial infarction; N17.0 Acute kidney failure with tubular necrosis; Z20.828 Contact with and (suspected) exposure to other viral communicable diseases
CPT/HCPCS: 36415; 71045; 71250; 80048; 80053; 80061; 80307; 81001; 82728; 82962; 83036; 83605; 83615; 83735; 83880; 84443; 84484; 85025; 85379; 85610; 85730; 86141; 87040; 87086; 87426; 93005; 96365; 96367; G0378; J0696; J1100; J1815; J2543; J3490

== ENCOUNTER 2020-02-24 07:26 | Inpatient (IN) | payer OTHER ==
--- NOTE | 2019-03-01 22:00 | NUR ---
2200 PO meds held, patient unable to follow commands. Will notify MD and continue to monitor. Addendum: 03/02/20 at 0135 by RYAN CLARK RN correct date 03/01/2020 not 03/01/2019.
[~2020-02-24] VITALS: Ht 177.8 cm; Wt 99.9 kg
[~2020-02-24 07:26] MED LIST changes: -AMPI500C8 PO; -SACC250C PO; +SULF400T11 PO
[2020-02-24] MEDS ORDERED: ATROPINE SULF 1 MG/10ml SYR ONE (07:44)
[2020-02-24] MEDS ORDERED: MIDAZOLAM HCL 1MG/1ML-2 ML VIAL ONE (07:44)
[2020-02-24] MEDS ORDERED: EPINEPHrine HCL 1 MG/10 ML SYRG ONE (07:44)
[2020-02-24] MEDS ORDERED: SODIUM CHL 0.9% 50 ML ONE ×2 (07:44→08:55)
[2020-02-24] MEDS ORDERED: ANGIOMAX 250 MG VIAL IV ONE ×2 (07:44→08:55)
[2020-02-24] MEDS ORDERED: fentaNYL CITRATE 100 MCG/2 ML VL ONE (07:44)
[2020-02-24] MEDS ORDERED: HEPARIN SODIUM (PORCINE) 5000 UNITS/ML 1ML VIAL IV ONE (07:45)
[2020-02-24] MEDS ORDERED: HEPARIN SODIUM (PORCINE) 5000 UNITS/ML 1ML VIAL ONE (07:45)
[2020-02-24] MEDS ORDERED: SODIUM CHLORIDE 0.9% 1,000 ML IV ONE (07:45)
[2020-02-24] MEDS ORDERED: VERAPAMIL 2.5MG/ML INJ 2ML VIAL IV ONE (07:45)
[2020-02-24 07:52] LABS: Basophils # (auto) 0 10 ^3/uL (0-0.2); Basophils % (auto) 0.3 % (0.0-2.0); Eosinophils # (auto) 0.1 10 ^3/uL (0-0.8); Eosinophils % (auto) 0.7 % (0.0-7.0); Hematocrit 40.9 % (41.0-53.0); Hemoglobin 14.1 g/dL (13.5-17.5); Lymphocytes # (auto) 0.7 10 ^3/uL (0.4-5.4); Lymphocytes % (auto) 6.1 % (10.0-50.0); Mean Corpuscular Hemoglobin 29.5 pg (28.0-32.0); Mean Corpuscular Hgb Conc. 34.5 g/dL (32.0-36.0); Mean Corpuscular Volume 85.5 fL (80.0-100.0); Monocytes # (auto) 0.4 10 ^3/uL (0-1.3); Monocytes % (auto) 3.7 % (0.0-12.0); Neutrophils # (auto) 10.1 10 ^3/uL (1.6-8.6); Neutrophils % (auto) 89.2 % (37.0-80.0); Platelet Count (auto) 197 10^3/uL (140-450); Red Blood Cells 4.78 10^6/uL (4.5-5.90); Red Cell Distribution Width 13.8 % (11.8-14.3); White Blood Cell 11.3 10^3/uL (4.4-10.8)
[2020-02-24 08:06] LABS: INR 1.06 (0.9-1.15); Partial Thromboplastin Time 27.9 sec (23.0-31.2)
[2020-02-24] MEDS ORDERED: IODIXANOL 320MG/ML 100ML BTL IV ONE ×4 (08:07→10:39)
[2020-02-24] MEDS ORDERED: LIDOCAINE 2%HCL (LOCAL ANESTH.) INJ 20ML MDV ONE ×2 (08:07→09:40)
[2020-02-24 08:38] LABS: Albumin 2.9 g/dL (3.4-5.0); BUN/Creatinine Ratio 14.1; Bilirubin, Total 1.8 mg/dL (0.2-1.0); Calcium 8.9 mg/dL (8.5-10.1); Potassium 3.9 mmol/L (3.5-5.1); Total Protein 7.2 g/dL (6.4-8.2)
[2020-02-24] MEDS ORDERED: MORPHINE SULF INJ 2 MG/ML SYRINGE 1ML IV PRN ×2 (09:45)
[2020-02-24] MEDS ORDERED: NITROGLYCERIN 0.4 MG SL TAB SL PRN (09:45)
[2020-02-24] MEDS ORDERED: DEXTROSE (50%) 50ML SYRG IV PRN (09:45)
[2020-02-24] MEDS ORDERED: HYDROcodone-ACET 5/325MG TAB PO PRN (09:45)
[2020-02-24] MEDS ORDERED: hydrALAZINE HCL 20 MG/ML VL IV PRN (09:45)
[2020-02-24] MEDS ORDERED: SULF400T11 PO (09:52)
[2020-02-24] MEDS ORDERED: VANCOMYCIN PER PHARMACY 0 MG IV SCH (10:00)
[2020-02-24] MEDS ORDERED: LISINOPRIL 10 MG TAB PO SCH (10:00)
[2020-02-24] MEDS: ASPirin-EC 81 mg tab PO SCH (10:00)
[2020-02-24] MEDS ORDERED: HEPARIN DRIP/D5W 100UNITS/ML 250 ML IV SCH (10:00)
[2020-02-24] MEDS: CLOPIDOGREL BISULFATE 75 MG TAB PO SCH (10:00)
[2020-02-24] MEDS ORDERED: ASPirin 325 MG TAB ONE (11:02)
[2020-02-24] MEDS ORDERED: CLOPIDOGREL 300 MG TAB ONE (11:02)
[2020-02-24] MEDS ORDERED: LISI-648 PO (12:11)
[2020-02-24] MEDS ORDERED: METF-929 PO (12:11)
[2020-02-24] MEDS ORDERED: GABA300C10 PO (12:11)
[2020-02-24] MEDS ORDERED: PANT40T PO (12:12)
[2020-02-24] MEDS ORDERED: ATOR40TA52 PO (12:13)
[2020-02-24] MEDS ORDERED: DOBUTamine 1000MCG/ML 250 ML IV SCH (12:15)
[2020-02-24] MEDS ORDERED: VANCOMYCIN 1GM/250ML 250 ML IV ONE ×2 (13:00→13:27)
[2020-02-24] MEDS ORDERED: DOBUTamine 1000MCG/ML 250 ML IV ONE (13:23)
[2020-02-24] MEDS ORDERED: cefTRIAXone 1GM/50ML D5W 50 ML IV ONE (13:27)
[2020-02-24] MEDS: FAMOTIDINE 20 MG TAB PO SCH (13:55)
[2020-02-24] MEDS: cefTRIAXone 1GM/50ML D5W 50 ML IV SCH (13:55)
[2020-02-24] MEDS: GABAPENTIN 300 MG CAP PO SCH ×2 (13:55→21:39)
[2020-02-24] MEDS: DOCUSATE SOD 100 MG CAP PO SCH ×2 (13:55→21:38)
[2020-02-24] MEDS: CARVEDILOL 3.125 MG TAB PO SCH ×2 (13:55→15:00)
[2020-02-24] MEDS: ACCU-CHEK COMFORT CURVE STRIP VI SCH ×3 (14:02→21:39)
[2020-02-24] MEDS: InsuLIN REG 1unit/0.01ml Soln (100units/ml) SC SCH ×3 (14:02→21:40)
[2020-02-24] MEDS: DOBUTamine 1000MCG/ML 250 ML IV SCH (16:45)
--- NOTE | 2020-02-24 16:48 | NUR ---
PT ARRIVED TO UNIT. ON LOW FOWLERS, ANGIOGRAM INSERTION SITE TO RIGHT GROIN, TEGADERM CDI AT MOMENT. HR: 94, RR:20, BP:110/64 PT ON DOBUTAMINE GTT AT 5MCG/KG/MIN. TOLERATING WELL. IV TO RFA#18, LFA#20. PT ORIENTED TO ROOM ENVIRONMENT. BED LOCKED AND IN LOWEST POSITION, CALL LIGHT WITHIN REACH. WILL CONTINUE TO MONITOR.
[2020-02-24 17:00] VITALS: BP 110/64
--- NOTE | 2020-02-24 19:27 | NUR ---
Care endorsed to oncoming RN. all questions and concerns addressed. Wound pictures pending.
--- NOTE | 2020-02-24 19:35 | NUR ---
Opening Shift Note Patient is AOx4 and very lethargic with nausea and vomiting present. Patient has no complaints of pain at this time and no s/s of respiratory distress. Patient currently running dobutamine as prescribed. Patient bed locked in lowest position and call light is within reach. Will give patient PRN anti nausea medication as prescribed. Will continue to monitor.
[2020-02-24] MEDS ORDERED: CARV3.1240 PO (19:54)
[2020-02-24] MEDS: ONDANSETRON HCL 4 MG/2 ML VIAL IV PRN (19:58)
[2020-02-24 20:00] VITALS: BP 103/70
[2020-02-24] MEDS: ATORVASTATIN 20 MG TAB PO SCH (21:39)
[2020-02-24] MEDS: SACUBITRIL-VALSARTAN 24mg/26mg TAB PO SCH (21:39)
[2020-02-24 22:00] VITALS: BP 103/70
--- NOTE | 2020-02-24 22:30 | NUR ---
Called Dr. Herbetrh Johnson to Clarify Heparin seth Johnson called back and orders received to d/c the heparin. Patient already has plavix and aspirin ordered for morning shift. Orders carried out.
[2020-02-25] MEDS: DOBUTamine 1000MCG/ML 250 ML IV SCH ×3 (01:30→17:59)
[2020-02-25 05:00] VITALS: BP 91/50
[2020-02-25] MEDS: GABAPENTIN 300 MG CAP PO SCH ×3 (06:30→21:39)
[2020-02-25] MEDS: InsuLIN REG 1unit/0.01ml Soln (100units/ml) SC SCH ×4 (07:00→22:47)
[2020-02-25] MEDS: ACCU-CHEK COMFORT CURVE STRIP VI SCH ×4 (07:00→22:47)
--- NOTE | 2020-02-25 07:00 | NUR ---
Patient Transferred to [facility] 287 Bed A with Maxine GALLO.
[2020-02-25 07:23] LABS: Basophils # (auto) 0 10 ^3/uL (0-0.2); Basophils % (auto) 0.3 % (0.0-2.0); Eosinophils # (auto) 0 10 ^3/uL (0-0.8); Hematocrit 35.1 % (41.0-53.0); Hemoglobin 11.7 g/dL (13.5-17.5); Lymphocytes # (auto) 1.1 10 ^3/uL (0.4-5.4); Lymphocytes % (auto) 5.8 % (10.0-50.0); Mean Corpuscular Hemoglobin 28.8 pg (28.0-32.0); Mean Corpuscular Hgb Conc. 33.2 g/dL (32.0-36.0); Mean Corpuscular Volume 86.8 fL (80.0-100.0); Monocytes # (auto) 1.7 10 ^3/uL (0-1.3); Monocytes % (auto) 9.5 % (0.0-12.0); Neutrophils # (auto) 15.2 10 ^3/uL (1.6-8.6); Neutrophils % (auto) 84.4 % (37.0-80.0); Nucleated Red Blood Cells % 0.2 %; Platelet Count (auto) 213 10^3/uL (140-450); Red Blood Cells 4.05 10^6/uL (4.5-5.90); Red Cell Distribution Width 14.1 % (11.8-14.3); White Blood Cell 18.1 10^3/uL (4.4-10.8)
--- NOTE | 2020-02-25 07:30 | NUR ---
Report Received from Zo GALLO. Patient to be going to 287A.
[2020-02-25 07:37] LABS: BUN/Creatinine Ratio 12.2; Calcium 8.4 mg/dL (8.5-10.1)
--- NOTE | 2020-02-25 07:38 | NUR ---
Report given and Patient care transferred to Maxine GALLO.
[2020-02-25 07:43] LABS: INR 1.08 (0.9-1.15); Partial Thromboplastin Time 35.2 sec (23.0-31.2)
--- NOTE | 2020-02-25 07:50 | NUR ---
Tele transfer from 232 to 290 B, YESSI CARLSON admitted to Telemetry West unit after SBAR received from Zo. Patient oriented to Ruby Lowry, primary RN, unit, room, bed, and unit policies regarding patient care and visiting hours. Patient now on continuous telemetry monitoring, tele box # 72 and telemetry reading on arrival to unit is SR with BBB. Patient placed on bedside oxygen, weighed by bedscale and encouraged to call if they need something. All questions and concerns addressed, patient verbalized understanding. Patient is A & O x4, no s/s of distress. POC discussed. Re-started patient on dobutamine drip at bedside. Will continue to monitor. Note: []
--- NOTE | 2020-02-25 07:50 | NUR ---
[facility]. admitted to Telemetry unit after SBAR received. Patient oriented to Ruby Lowry primary RN, unit, room, bed, and unit policies regarding patient care and visiting hours. Patient now on continuous telemetry monitoring, tele box # [] and telemetry reading on arrival to unit is []. Patient placed on bedside oxygen, weighed by bedscale and encouraged to call if they need something. All questions and concerns addressed, patient verbalized understanding. Note: [] Addendum: 02/25/20 at 1337 by Ruby Lowry RN DISREGARD, WRONG NOTE
[2020-02-25] MEDS: SACUBITRIL-VALSARTAN 24mg/26mg TAB PO SCH ×2 (10:00→21:38)
[2020-02-25] MEDS: CARVEDILOL 3.125 MG TAB PO SCH ×2 (10:00→21:38)
[2020-02-25] MEDS: SPIRONOLACTONE 25 MG TAB PO SCH (10:00)
[2020-02-25] MEDS: cefTRIAXone 1GM/50ML D5W 50 ML IV SCH (10:26)
--- NOTE | 2020-02-25 11:00 | NUR ---
Paged Dr. Herberth Johnson office regarding BP medication and low BP.
--- NOTE | 2020-02-25 11:06 | NUR ---
WOUND CARE NOTE: Wound care in to see patient per wound care request regarding "Left foot partial amputation, Right great toe amputation". Bedside nurse took photograph of patient's wounds upon admission for reference. Patient is 64 y/o male with admitting diagnosis of STEMI. Patient is resting in bed in Rm. 290B. Patient is awake, alert and oriented. He's self turning and repositioning and he reported that he's ambulatory at home with the use of padded walking boots and use of walker. His Daniel score is 19. Noted patient's L forefoot stump have large calloused 5x8cm with open area at distal lateral aspect measuring 1x1x0.8cm. Wound is red, no drainage or odor noted. Patient also has history of R great toe amputation and stump noted with brown calloused DFU measuring 4x3.5x0.5cm with open area of 0.8x0.8x0.5cm. Wound is red with no drainage/odor noted. Patient reported that he had partial amputation of L foot and R great toe in 2017 and 2018. He added that his bilateral foot wounds are being managed at [facility]. He states that he goes the once a month, getting wound debridement and wound care. In addition his does the wound dressing change every other day. He continued further that his next appointment to [facility] is on March 11. Cleansed patient's bilateral foot wounds with Betadine, fill wound cavity with 2x2 Betadine moist gauze, padded with layers of 4x4's gauze, wrapped with Kerlix and secured with tape. Patient's wound care education provided and encourage to keep up with his appointment at wound clinic. Patient verbalized understanding. Patient turned to his left side to examine his sacral and back, no other wound noted other than brown pigmented, blanchable skin to his sacral area. Patient tolerated well. Patient has pending podiatry consult and has cardiology consult. RECOMMENDATION: Nursing to continue with EOD/PRN dressing change to BLE wounds per MD order, Dietary consult, elevate affected extremity on pillows, continue monitoring by wound care while patient is hospitalized. Addendum: 02/25/20 at 1516 by Helga Tomlinson RN Amended: Links added.
[2020-02-25] MEDS: DOCUSATE SOD 100 MG CAP PO SCH ×2 (11:49→21:37)
[2020-02-25] MEDS: ASPirin-EC 81 mg tab PO SCH (11:50)
[2020-02-25] MEDS: CLOPIDOGREL BISULFATE 75 MG TAB PO SCH (11:50)
[2020-02-25] MEDS ORDERED: LINEZOLID 600MG/300ML 300 ML IV ONE (12:15)
--- NOTE | 2020-02-25 12:20 | NUR ---
Spoke to Dr. Herberth Johnson regarding medications and low BP Informed Dr. Johnson of patient low BP, 91/60 and 94/63 patient asymptomatic at this time, orders received, read back and verified to hold BP medication morning dose.
[2020-02-25 13:00] VITALS: BP 113/67
[2020-02-25 17:00] VITALS: BP 101/57
--- NOTE | 2020-02-25 17:30 | NUR ---
Patient c/o nausea and headache. Will medicate per orders. Patient has no other complaints at this time, will continue to monitor.
[2020-02-25] MEDS: ACETAMINOPHEN 500 MG TAB PO PRN (17:38)
[2020-02-25] MEDS: ONDANSETRON HCL 4 MG/2 ML VIAL IV PRN (17:38)
--- NOTE | 2020-02-25 18:18 | NUR ---
Podiatry Consult never called, given to executive secretary social welfare Mary to call. Will follow up.
--- NOTE | 2020-02-25 20:00 | NUR ---
assumed care, pt. awake, no c/o pain, dressing on rt. and lt. foot dry and intact, no sob.
[2020-02-25] MEDS: ATORVASTATIN 20 MG TAB PO SCH (21:39)
[2020-02-25] MEDS: LINEZOLID 600MG/300ML 300 ML IV SCH (21:40)
[2020-02-25 22:00] VITALS: BP 89/55
[2020-02-25 23:58] VITALS: BP 100/65
[2020-02-26] MEDS: DOBUTamine 1000MCG/ML 250 ML IV SCH ×3 (02:12→18:54)
[2020-02-26 05:00] VITALS: BP 105/64
[2020-02-26] MEDS: GABAPENTIN 300 MG CAP PO SCH ×3 (05:41→21:24)
[2020-02-26] MEDS: ACCU-CHEK COMFORT CURVE STRIP VI SCH ×4 (06:15→21:25)
[2020-02-26] MEDS: InsuLIN REG 1unit/0.01ml Soln (100units/ml) SC SCH ×4 (06:15→21:26)
--- NOTE | 2020-02-26 07:50 | NUR ---
Opening Shift Note Assumed care of patient, awake and alert laying in bed. No S/S of distress/SOB or pain. Instructed on POC and to call for assist PRN, will continue to monitor for changes Q1hr and PRN.
[2020-02-26] MEDS: ONDANSETRON HCL 4 MG/2 ML VIAL IV PRN ×2 (08:27→12:36)
[2020-02-26] MEDS: cefTRIAXone 1GM/50ML D5W 50 ML IV SCH (08:27)
[2020-02-26 09:00] VITALS: BP 130/70
[2020-02-26] MEDS: DOCUSATE SOD 100 MG CAP PO SCH ×2 (09:28→21:25)
[2020-02-26] MEDS: CLOPIDOGREL BISULFATE 75 MG TAB PO SCH (09:28)
[2020-02-26] MEDS: SACUBITRIL-VALSARTAN 24mg/26mg TAB PO SCH ×2 (09:28→21:30)
[2020-02-26] MEDS: FAMOTIDINE 20 MG TAB PO SCH (09:28)
[2020-02-26] MEDS: ASPirin-EC 81 mg tab PO SCH (09:28)
[2020-02-26] MEDS: CARVEDILOL 3.125 MG TAB PO SCH ×2 (09:29→21:27)
[2020-02-26] MEDS: LINEZOLID 600MG/300ML 300 ML IV SCH ×2 (09:29→21:24)
[2020-02-26] MEDS: SPIRONOLACTONE 25 MG TAB PO SCH (09:29)
[2020-02-26] MEDS: ACETAMINOPHEN 500 MG TAB PO PRN (09:40)
[2020-02-26 13:00] VITALS: BP 99/72
[2020-02-26 13:22] LABS: Basophils # (auto) 0 10 ^3/uL (0-0.2); Basophils % (auto) 0.5 % (0.0-2.0); Eosinophils # (auto) 0 10 ^3/uL (0-0.8); Eosinophils % (auto) 0.3 % (0.0-7.0); Hematocrit 37.3 % (41.0-53.0); Hemoglobin 12.7 g/dL (13.5-17.5); Lymphocytes % (auto) 9.8 % (10.0-50.0); Mean Corpuscular Hemoglobin 29.3 pg (28.0-32.0); Mean Corpuscular Hgb Conc. 34.1 g/dL (32.0-36.0); Mean Corpuscular Volume 86.1 fL (80.0-100.0); Monocytes # (auto) 0.6 10 ^3/uL (0-1.3); Monocytes % (auto) 6.2 % (0.0-12.0); Neutrophils # (auto) 8.3 10 ^3/uL (1.6-8.6); Neutrophils % (auto) 83.2 % (37.0-80.0); Platelet Count (auto) 219 10^3/uL (140-450); Red Blood Cells 4.33 10^6/uL (4.5-5.90); Red Cell Distribution Width 14.2 % (11.8-14.3)
--- NOTE | 2020-02-26 13:30 | NUR ---
Nausea and Vomiting Verbal orders received from Dr. Herberth Johnson to administer Phenergan 12.5mg Q6H PRN as needed for nausea and vomiting. Order read back and verified and entered in eMAR. Zofran previously administered but it is not effective.
[2020-02-26 13:35] LABS: BUN/Creatinine Ratio 9.9; Calcium 8.1 mg/dL (8.5-10.1); Potassium 3.7 mmol/L (3.5-5.1)
[2020-02-26] MEDS: PROMETHAZINE HCL 25 MG/ML 1ML IV PRN (14:20)
--- NOTE | 2020-02-26 14:20 | NUR ---
Hospitalist Rounded Dr. Johnson at bedside.
--- NOTE | 2020-02-26 15:18 | NUR ---
Nutrition Assessment/Consult Notes Please refer to link for full assessment notes. Est Energy needs: 4310-1440 kcals (17-20 kcal/kgBW) Est Protein needs: 107-128 gms/day (1.0-1.2 gm/kgBW) d/t wounds Will continue to monitor and reassess prn. Addendum: 02/26/20 at [address] Amended: Links added.
[2020-02-26 16:45] VITALS: BP 106/72
--- NOTE | 2020-02-26 19:35 | NUR ---
Opening Shift Note Assumed care of patient, awake and alert. No S/S of distress/SOB or pain. Fall and safety precautions in place. Call light within reach and able to use. Instructed on POC and to call for assist PRN, patient verbalized understanding and in agreement. Will continue to monitor for changes Q1hr and PRN.
[2020-02-26] MEDS: ATORVASTATIN 20 MG TAB PO SCH (21:24)
[2020-02-26 21:52] VITALS: BP 98/67
--- NOTE | 2020-02-26 21:55 | NUR ---
MED NON-ADMIN / PAIN MEDICATION SCHEDULED AT 2200 NON-ADMINISTERED DUE TO LOWERED BLOOD PRESSURE 98/67 MMHG, HEART RATE 89 BPM. ON-CALL HOSPITALIST PAGED AT THIS TIME. AWAITING CALL BACK. WILL CONTINUE TO MONITOR. ADDITIONALLY, PATIENT HAS PAIN RATED 3/10 USING ADULT PAIN SCALE TO LEFT EYEBROW. PAIN MANAGEMENT TECHNIQUES DISCUSSED WITH PATIENT, INCLUDING MEDICATION. PATIENT DECLINES MEDICATION AND IN AGREEMENT WITH DISTRACTION/RELAXATION TECHNIQUES. PATIENT EDUCATED ON PAIN MANAGEMENT, PATIENT VERBALIZED UNDERSTANDING AND IN AGREEMENT. WILL CONTINUE TO MONITOR.
[2020-02-27] MEDS: DOBUTamine 1000MCG/ML 250 ML IV SCH ×3 (03:40→19:45)
--- NOTE | 2020-02-27 04:52 | NUR ---
ON-CALL HOSP PAGED PATIENT'S BLOOD PRESSURE 88/54 MMHG AT TIME OF DOBUTAMINE DRIP (SEE EMAR FOR ADMINISTRATION). BP RECHECKED AT THIS TIME 94/55 MMHG WITH HEART RATE 87 BPM. ADDITIONALLY, DID NOT RECEIVED CALL BACK FROM PREVIOUS PAGE (SEE PREVIOUS NOTE) FOR PATIENT'S MED NON-ADMIN. ON-CALL HOSP PAGED AT THIS TIME. AWAITING CALL BACK. WILL CONTINUE TO MONITOR.
[2020-02-27 05:00] VITALS: BP 94/55
[2020-02-27] MEDS: ACCU-CHEK COMFORT CURVE STRIP VI SCH ×4 (06:07→21:06)
[2020-02-27] MEDS: GABAPENTIN 300 MG CAP PO SCH ×3 (06:07→21:06)
[2020-02-27] MEDS: InsuLIN REG 1unit/0.01ml Soln (100units/ml) SC SCH ×4 (06:08→21:08)
--- NOTE | 2020-02-27 06:18 | NUR ---
ON-CALL HOSP PAGED STILL HAVE NOT YET RECEIVED CALL BACK FROM ON-CALL HOSPITALIST. ON-CALL HOSP PAGED AGAIN AT THIS TIME. AWAITING CALL BACK. WILL CONTINUE TO MONITOR.
--- NOTE | 2020-02-27 06:49 | NUR ---
ON-CALL HOSP CALL-BACK ON-CALL HOSPITALIST CALLED BACK AT THIS TIME. UPDATED RESEARCH SOFTWARE ENGINEER ON PATIENT STATUS, REGARDING LOW BLOOD PRESSURE AND MED NON-ADMIN AT 2200 ON 02/26/20. RESEARCH SOFTWARE ENGINEER VERBALIZED UNDERSTANDING AND STATED, "OK, THAT'S FINE". NO NEW ORDERS RECEIVED.
--- NOTE | 2020-02-27 07:55 | NUR ---
Opening Shift Note Assumed care of patient, awake and alert, states he is feeling much better today. No S/S of distress/SOB or pain. Instructed on POC and to call for assist PRN, will continue to monitor for changes Q1hr and PRN.
[2020-02-27 09:07] VITALS: BP 98/67
[2020-02-27] MEDS: SACUBITRIL-VALSARTAN 24mg/26mg TAB PO SCH ×2 (10:00→21:08)
[2020-02-27] MEDS: SPIRONOLACTONE 25 MG TAB PO SCH (10:00)
[2020-02-27] MEDS: CARVEDILOL 3.125 MG TAB PO SCH (10:00)
--- NOTE | 2020-02-27 10:00 | NUR ---
Decreased Blood pressure Held blood pressure medications due to decreased blood pressure. MD will be notified.
[2020-02-27] MEDS: cefTRIAXone 1GM/50ML D5W 50 ML IV SCH (10:20)
[2020-02-27] MEDS: LINEZOLID 600MG/300ML 300 ML IV SCH ×2 (10:20→21:05)
[2020-02-27] MEDS: ASPirin-EC 81 mg tab PO SCH (10:20)
[2020-02-27] MEDS: CLOPIDOGREL BISULFATE 75 MG TAB PO SCH (10:20)
[2020-02-27] MEDS: DOCUSATE SOD 100 MG CAP PO SCH ×2 (10:21→21:05)
[2020-02-27 13:01] VITALS: BP 109/67
--- NOTE | 2020-02-27 13:30 | NUR ---
[facility] Hospitalist Dr. Alex bowens, patient is having uncontrollable generalized muscle spasms, new onset. Will continue to monitor.
--- NOTE | 2020-02-27 13:55 | NUR ---
Hospitalist Dr. Johnson returned call. Telephone orders received, read back, verified and entered in eMAR. RN will carry out orders as prescribed and reassess patient.
--- NOTE | 2020-02-27 13:56 | NUR ---
Blood Pressure Medications Received telephone order from Dr. Herberth Johnson to hold Entresto and discontinue Coreg and Aldactone.
[2020-02-27] MEDS: BACLOFEN 10 MG TAB PO SCH ×2 (14:23→21:05)
--- NOTE | 2020-02-27 17:00 | NUR ---
Paged Hospitalist Patient continues to have generalized muscle spasm like movement. Orders received for neurology consult.
[2020-02-27 17:15] VITALS: BP 100/67
--- NOTE | 2020-02-27 19:00 | NUR ---
Neurologist Rounded Dr. Hinton in to see patient. Awaiting new orders.
--- NOTE | 2020-02-27 19:30 | NUR ---
Opening Shift Note Assumed care of patient, AOX4. No S/S of distress/SOB or pain. Fall and safety precautions in place. Call light within reach and able to use. Instructed on POC and to call for assist PRN, patient verbalized understanding and in agreement. Will continue to monitor for changes Q1hr and PRN.
[2020-02-27] MEDS: ATORVASTATIN 20 MG TAB PO SCH (21:05)
[2020-02-27 22:00] VITALS: BP_SYST 100; BP_SYST 103; BP_DIAS 67; BP_DIAS 68
--- NOTE | 2020-02-27 22:00 | NUR ---
MED NON-ADMIN PATIENT'S BLOOD PRESSURE 103/68 MMHG. PER MD COMMUNICATION ORDER (SEE ORDERS), ENTRESTO TO BE HELD AT THIS TIME. SEE EMAR FOR DOCUMENTATION. WILL CONTINUE TO MONITOR.
--- NOTE | 2020-02-27 23:00 | NUR ---
WOUND CARE PER MD ORDER AND WOUND CARE RECOMMENDATION, WOUND CARE PERFORMED AT THIS TIME WITH PATIENT'S CONSENT. PATIENT TOLERATED WELL. WILL CONTINUE TO MONITOR.
[2020-02-28] MEDS: DOBUTamine 1000MCG/ML 250 ML IV SCH ×3 (04:02→20:31)
[2020-02-28 05:45] VITALS: BP 114/61
[2020-02-28] MEDS: GABAPENTIN 300 MG CAP PO SCH ×3 (06:01→21:16)
[2020-02-28] MEDS: ACCU-CHEK COMFORT CURVE STRIP VI SCH ×4 (06:02→21:16)
[2020-02-28] MEDS: BACLOFEN 10 MG TAB PO SCH ×3 (06:02→21:14)
[2020-02-28] MEDS: InsuLIN REG 1unit/0.01ml Soln (100units/ml) SC SCH ×4 (06:03→21:17)
--- NOTE | 2020-02-28 07:50 | NUR ---
Opening Shift Note Assumed care of patient, awake and alert. No S/S of distress/SOB or pain. Instructed on POC and to call for assist PRN, will continue to monitor for changes Q1hr and PRN. Bed locked in lowest position with two side rails up and call light in reach.
[2020-02-28 08:00] VITALS: BP 90/57
[2020-02-28 09:00] VITALS: BP 90/57
[2020-02-28] MEDS: SACUBITRIL-VALSARTAN 24mg/26mg TAB PO SCH ×2 (09:08→21:14)
--- NOTE | 2020-02-28 09:10 | NUR ---
ENTRESTO HELD PER COMMUNICATION ORDER.
[2020-02-28] MEDS: cefTRIAXone 1GM/50ML D5W 50 ML IV SCH (09:12)
[2020-02-28] MEDS: LINEZOLID 600MG/300ML 300 ML IV SCH ×2 (09:13→22:06)
[2020-02-28] MEDS: FAMOTIDINE 20 MG TAB PO SCH (09:13)
[2020-02-28] MEDS: DOCUSATE SOD 100 MG CAP PO SCH ×2 (09:13→21:14)
[2020-02-28] MEDS: ASPirin-EC 81 mg tab PO SCH (09:13)
[2020-02-28] MEDS: CLOPIDOGREL BISULFATE 75 MG TAB PO SCH (09:14)
[2020-02-28] MEDS ORDERED: LORazepam 2MG/ML-1ML VIAL IV ONE (10:30)
[2020-02-28 13:00] VITALS: BP 118/48
[2020-02-28 16:49] VITALS: BP 123/69
--- NOTE | 2020-02-28 19:25 | NUR ---
Opening Shift Note Assumed care of patient. AOx1. No S/S of distress/SOB or pain. Fall and safety precautions in place. Call light within reach. Sitter at bedside for safety. Instructed on POC and to call for assist PRN, will continue to monitor for changes Q1hr and PRN.
--- NOTE | 2020-02-28 19:30 | NUR ---
MD ESTRADA AT BEDSIDE
--- NOTE | 2020-02-28 19:40 | NUR ---
MD Herberth KATE AT BEDSIDE
--- NOTE | 2020-02-28 19:45 | NUR ---
Tacho KATE CALLED PER MD Herberth KATE REQUEST, DR. Tacho KATE CALLED AT THIS TIME. UPDATED MD ON PATIENT STATUS. NEW ORDERS RECEIVED, READ BACK AND VERIFIED (SEE NEW ORDERS). WILL CARRY OUT. WILL CONTINUE TO MONITOR.
--- NOTE | 2020-02-28 19:48 | NUR ---
MED NON-ADMIN PATIENT HAVING MORE FREQUENT LOOSER STOOL. PER DR. Herberth KATE, OKAY TO HOLD COLACE AT 2200.
--- NOTE | 2020-02-28 19:58 | NUR ---
[facility] NEW ORDER PER DR. Herberth KATE, TRANSFER PATIENT TO [facility] STATUS.
[2020-02-28] MEDS ORDERED: ALBUMIN 25% 100 ML IV ONE (20:00)
--- NOTE | 2020-02-28 20:00 | NUR ---
RECEIVER DISPATCHER NOTIFIED CALLED RECEIVER DISPATCHER AT THIS TIME FOR 'S NEW ORDER FOR [facility] TRANSFER FOR PATIENT. RECEIVER DISPATCHER STATED TO PAGE DUGLAS NICOLAS. DUGLAS NICOLAS PAGED AT THIS TIME. AWAITING CALL BACK. WILL CONTINUE TO MONITOR.
--- NOTE | 2020-02-28 20:16 | NUR ---
FAMILY MEMBER JONATAN CALLED AT THIS TIME. MD. Herberth KATE TALKS TO PATIENT'S AT THIS TIME TO UPDATE ON PATIENT STATUS. THIS RN TAKES OVER CALL. STATES REGARDING PATIENT'S CONDITION, "I THINK THIS WAS SOMETHING THAT WAS COMING ON". ALL QUESTIONS/CONCERNS ANSWERED/ADDRESSED AT THIS TIME. NO FURTHER QUESTIONS. WILL CONTINUE TO MONITOR.
--- NOTE | 2020-02-28 20:58 | NUR ---
DUGLAS PÉREZ PAGED DUGLAS PÉREZ PAGED AT THIS TIME TO INFORM OF PATIENT'S TRANSFER TO [facility]. AWAITING CALL BACK. WILL CONTINUE TO MONITOR.
[2020-02-28] MEDS: ATORVASTATIN 20 MG TAB PO SCH (21:14)
--- NOTE | 2020-02-28 21:14 | NUR ---
ENTRESTO HELD PER COMMUNICATION ORDER.
--- NOTE | 2020-02-28 21:48 | NUR ---
DUGLAS PÉREZ PAGED DUGLAS PÉREZ PAGED AT THIS TIME TO INFORM OF PATIENT'S TRANSFER TO [facility]. AWAITING CALL BACK. WILL CONTINUE TO MONITOR.
[2020-02-28 21:52] VITALS: BP 127/64
--- NOTE | 2020-02-28 21:52 | NUR ---
EL CAJON SUP CALL BACK RECEIVED A CALL BACK FROM EL CAJON MARIA ISABEL AT THIS TIME. INFORMED STRUCTURAL IRONWORKER OF 'S NEW ORDER FOR PATIENT. PER HS, NO BEDS AT THIS TIME AVAILABLE. INSTRUCTED TO INFORM DR. Herberth KATE OF STATUS OF AVAILABILITY AND THAT PATIENT WOULD BE KEPT ON [facility]ST FLOOR [facility] STATUS.
--- NOTE | 2020-02-28 21:59 | NUR ---
Herberth KATE CALLED . Vandana KATE CALLED AT THIS TIME TO INFORM OF BED STATUS AVAILABILITY. MD STATED TO START LEVOPHED DRIP. INFORMED MD ON PATIENT'S LAST BLOOD PRESSURE AND URINE OUTPUT. NO NEW ORDERS RECEIVED. MD TO SPEAK TO HOUSE SUP. WILL CONTINUE TO MONITOR.
[2020-02-28 22:04] LABS: Basophils # (auto) 0.1 10 ^3/uL (0-0.2); Basophils % (auto) 0.9 % (0.0-2.0); Eosinophils # (auto) 0.2 10 ^3/uL (0-0.8); Eosinophils % (auto) 4.1 % (0.0-7.0); Hematocrit 34.1 % (41.0-53.0); Hemoglobin 11.6 g/dL (13.5-17.5); Lymphocytes # (auto) 0.6 10 ^3/uL (0.4-5.4); Mean Corpuscular Hemoglobin 29.2 pg (28.0-32.0); Mean Corpuscular Hgb Conc. 34.1 g/dL (32.0-36.0); Mean Corpuscular Volume 85.6 fL (80.0-100.0); Monocytes # (auto) 0.9 10 ^3/uL (0-1.3); Nucleated Red Blood Cells % 0.1 %; Platelet Count (auto) 209 10^3/uL (140-450); Red Blood Cells 3.99 10^6/uL (4.5-5.90); White Blood Cell 5.7 10^3/uL (4.4-10.8)
[2020-02-28 22:29] LABS: Albumin 2.5 g/dL (3.4-5.0); BUN/Creatinine Ratio 7.8; Calcium 7.8 mg/dL (8.5-10.1); Magnesium 1.9 mg/dL (1.6-2.6); Uric Acid 10.3 mg/dL (3.5-7.2)
--- NOTE | 2020-02-28 22:30 | NUR ---
WELLS INSERTION PATIENT EDUCATED ON CATHETER AND REASON FOR INSERTION. PER MD ORDER, INDWELLING 16 TURKISH CATHETER INSERTED AT THIS TIME WITH STERILE TECHNIQUE. PATIENT TOLERATED WELL. WILL CONTINUE TO MONITOR.
[2020-02-28 22:37] LABS: Bilirubin, Total 0.4 mg/dL (0.2-1.0); Phosphorus 4.6 mg/dL (2.5-4.90); Total Protein 5.8 g/dL (6.4-8.2)
--- NOTE | 2020-02-28 23:09 | NUR ---
Tacho KATE CALLED MD Tacho KATE CALLED AT THIS TIME PER MD'S PREVIOUS REQUEST TO REPORT LAB RESULTS. UPDATED MD ON PATIENT STATUS SINCE PREVIOUS CALL. NEW ORDERS RECEIVED, READ BACK AND VERIFIED (SEE NEW ORDERS). WILL CARRY OUT. WILL CALL MD IN AM ON 02/28 WHEN NEW LAB VALUES RESULT. WILL CONTINUE TO MONITOR PATIENT.
--- NOTE | 2020-02-28 23:11 | NUR ---
SEAN PAGED SEIZURE PRECAUTIONS INITIATED. MD ESTRADA PAGED TO INQUIRE OF MEDICATION FOR SEIZURE PRECAUTIONS. AWAITING CALL BACK. WILL CONTINUE TO MONITOR.
--- NOTE | 2020-02-28 23:40 | NUR ---
SEIZURE PRECAUTIONS SEIZURE PRECAUTIONS INITIATED. SITTER AT BEDSIDE. WILL CONTINUE TO MONITOR.
--- NOTE | 2020-02-28 23:45 | NUR ---
SEAN CALL BACK RECEIVED A CALL BACK FROM MD ESTRADA. UPDATED MD ON PATIENT STATUS AND DR. Tacho KATE ORDER FOR SEIZURE PRECAUTIONS. NEW ORDER RECEIVED, READ BACK AND VERIFIED (SEE NEW ORDERS). WILL CONTINUE TO MONITOR.
[2020-02-29] VITALS (8 sets, daily range): BP systolic 98–130; BP diastolic 58–91
[2020-02-29] MEDS ORDERED: LORazepam 2MG/ML-1ML VIAL IV PRN
[2020-02-29] MEDS: DOBUTamine 1000MCG/ML 250 ML IV SCH ×2 (05:05→14:15)
[2020-02-29] MEDS: GABAPENTIN 300 MG CAP PO SCH ×3 (06:00→22:17)
[2020-02-29] MEDS: BACLOFEN 10 MG TAB PO SCH ×3 (06:00→22:17)
[2020-02-29] MEDS: ACCU-CHEK COMFORT CURVE STRIP VI SCH ×4 (06:14→22:17)
[2020-02-29] MEDS: InsuLIN REG 1unit/0.01ml Soln (100units/ml) SC SCH ×4 (06:15→22:19)
[2020-02-29 07:00] LABS: Basophils # (auto) 0 10 ^3/uL (0-0.2); Eosinophils # (auto) 0.1 10 ^3/uL (0-0.8); Eosinophils % (auto) 3.1 % (0.0-7.0); Hematocrit 33.4 % (41.0-53.0); Hemoglobin 11.3 g/dL (13.5-17.5); Lymphocytes # (auto) 0.4 10 ^3/uL (0.4-5.4); Lymphocytes % (auto) 9.3 % (10.0-50.0); Mean Corpuscular Hemoglobin 28.7 pg (28.0-32.0); Mean Corpuscular Hgb Conc. 33.8 g/dL (32.0-36.0); Monocytes # (auto) 0.8 10 ^3/uL (0-1.3); Monocytes % (auto) 17.1 % (0.0-12.0); Neutrophils # (auto) 3.1 10 ^3/uL (1.6-8.6); Neutrophils % (auto) 69.5 % (37.0-80.0); Platelet Count (auto) 209 10^3/uL (140-450); Red Blood Cells 3.92 10^6/uL (4.5-5.90); White Blood Cell 4.5 10^3/uL (4.4-10.8)
[2020-02-29 07:25] LABS: Albumin 2.6 g/dL (3.4-5.0); BUN/Creatinine Ratio 8.8; Calcium 7.5 mg/dL (8.5-10.1); Magnesium 2.1 mg/dL (1.6-2.6); Phosphorus 4.7 mg/dL (2.5-4.90); Potassium 3.1 mmol/L (3.5-5.1)
[2020-02-29 07:28] LABS: Bilirubin, Total 0.5 mg/dL (0.2-1.0); Total Protein 5.5 g/dL (6.4-8.2)
--- NOTE | 2020-02-29 07:50 | NUR ---
Opening Shift Note Assumed care of patient, awake and alert. Patient having a consistent jerking motion not wanting to open eyes, patient is able eat if fed with strict precautions do to the sudden movements. Instructed on POC and , will continue to monitor for changes Q1hr and PRN. Bed locked in lowest position with two side rails up and call light in reach.
--- NOTE | 2020-02-29 08:27 | NUR ---
PAGED DR Vandana MENDEZ TO FIND OUT WHO WILL BE DOING AJIT.
[2020-02-29] MEDS: SACUBITRIL-VALSARTAN 24mg/26mg TAB PO SCH ×2 (10:00→22:25)
[2020-02-29] MEDS: DOCUSATE SOD 100 MG CAP PO SCH ×2 (10:00→22:17)
[2020-02-29] MEDS: cefTRIAXone 1GM/50ML D5W 50 ML IV SCH (11:41)
[2020-02-29] MEDS: LINEZOLID 600MG/300ML 300 ML IV SCH ×2 (11:42→22:17)
[2020-02-29] MEDS: ASPirin-EC 81 mg tab PO SCH (11:42)
[2020-02-29] MEDS: CLOPIDOGREL BISULFATE 75 MG TAB PO SCH (12:05)
--- NOTE | 2020-02-29 12:25 | NUR ---
Nutrition Followup Note Wt 107kg Pt is unable to answer questions per sitter. Pt is with CCHO 60g diet poor po intake with multiple 0% intakes. If pt is unable to consume po diet, consider alternate nutrition of TF of Glucerna 1.2 at a goal rate of 60 ml/hr or TPN Est Energy needs: 2777-2240 kcals (17-20 kcal/kgBW) Est Protein needs: 107-128 gms/day (1.0-1.2 gm/kgBW) d/t wounds Will continue to monitor and reassess prn. Labs: Na 129L, BUN 48H, K 3.1L, Craet 5.48H, Alb 2.6L, Ca 7.5L, GLUC 217H BM: pt with 1 BM 02/27 per RN note Skin: BS 20 low risk, full details in medicare contact specialist note PES: 1) Obesity r/t energy intake in excess of energy needs aeb BMI of 33.8 kg/m2 2) Altered nutrition related lab values r/t current/chronic medical condition 2) aeb hyperglydemia, hypocalcemia, hypoalbuminemia Comments: Will continue to monitor PO status, skin status, pertinent labs and weight trends. Will f/u in 3-5 days 1) Continue to closely monitor pt PO intake to meet at least 75% of meals 2) Suggest a daily MVI with 500mg VitC BID 3) Continue current plan of care
--- NOTE | 2020-02-29 13:26 | NUR ---
ATTEMPTED TO PERFORM ROM EXERCISES FOR BILAT UE'S AND LE'S. PATIENT IS RIGID, NOT ABLE TO FOLLOW COMMANDS UPON REQUEST AND EXPERIENCES INVOLUNTARY MOVEMENTS. WILL ADVISE PATIENTS NURSE. Addendum: 02/29/20 at 1329 by Azra Chowdhury PT Amended: Links added.
--- NOTE | 2020-02-29 18:15 | NUR ---
CALLED DR Elma KATE PER HIS REQUEST I SPOKE TO DR ESTRADA ABOUT DIALYSIS . DR ESTRADA AGREES THAT DIALYSIS COULD BE BENEFICIAL TO PATIENT, WILL NOTIFY DR Elma KATE.
--- NOTE | 2020-02-29 18:15 | NUR ---
TELEPHONE CONSENT RECEIVED FROM JONATAN [phone] FOR AJIT, BLOOD, AND ANESTHESIA. SECOND WITNESS MARILEE GALLO .
--- NOTE | 2020-02-29 18:20 | NUR ---
PER DR Elma KATE ORDERS FOR SURGICAL CONSULT FOR LEVAR CATH PLACEMENT AND BMP LAB
[2020-02-29 21:00] LABS: BUN/Creatinine Ratio 9.9; Calcium 7.9 mg/dL (8.5-10.1); Potassium 3.3 mmol/L (3.5-5.1)
[2020-02-29] MEDS: ATORVASTATIN 20 MG TAB PO SCH (22:17)
[2020-03-01] MEDS: DOBUTamine 1000MCG/ML 250 ML IV SCH ×3 (00:42→16:18)
[2020-03-01 02:09] LABS: INR 0.99 (0.9-1.15); Partial Thromboplastin Time 31.4 sec (23.0-31.2)
[2020-03-01 04:49] VITALS: BP 112/66
[2020-03-01] MEDS: BACLOFEN 10 MG TAB PO SCH ×3 (05:28→22:00)
[2020-03-01] MEDS: GABAPENTIN 300 MG CAP PO SCH ×3 (05:28→22:00)
--- NOTE | 2020-03-01 05:31 | NUR ---
PO MEDS ADMINISTERED SCHEDULED 0600 PO MEDICATIONS. PATIENT IS UNABLE TO FOLLOW COMMANDS TO SWALLOW AND CHEWED HIS PILLS. WILL NOTIFY MD AND CONTINUE CARE.
--- NOTE | 2020-03-01 07:15 | NUR ---
Opening Shift Note Patient awakes with voice and touch. Patient has a consistent jerking motion. Instructed on POC. Will continue to monitor for changes Q1hr and PRN. Bed locked in lowest position with two side rails up and call light in reach.
[2020-03-01] MEDS: InsuLIN REG 1unit/0.01ml Soln (100units/ml) SC SCH ×4 (07:17→22:36)
[2020-03-01] MEDS: ACCU-CHEK COMFORT CURVE STRIP VI SCH ×4 (07:17→22:35)
[2020-03-01] MEDS: cefTRIAXone 1GM/50ML D5W 50 ML IV SCH (08:33)
[2020-03-01 08:37] VITALS: BP 120/72
[2020-03-01] MEDS: LINEZOLID 600MG/300ML 300 ML IV SCH ×2 (09:27→22:35)
[2020-03-01] MEDS: CLOPIDOGREL BISULFATE 75 MG TAB PO SCH (10:00)
[2020-03-01] MEDS: DOCUSATE SOD 100 MG CAP PO SCH ×2 (10:00→22:00)
[2020-03-01] MEDS: SACUBITRIL-VALSARTAN 24mg/26mg TAB PO SCH ×2 (10:00→22:00)
[2020-03-01] MEDS: FAMOTIDINE 20 MG TAB PO SCH (10:00)
[2020-03-01] MEDS: ASPirin-EC 81 mg tab PO SCH (10:00)
--- NOTE | 2020-03-01 10:00 | NUR ---
PO MEDICATIONS HELD 1000 SCHEDULED PO MEDICATIONS HELD. PATIENT IS UNABLE TO FOLLOW COMMANDS TO SWALLOW HIS PILLS. WILL NOTIFY MD AND CONTINUE CARE.
--- NOTE | 2020-03-01 11:00 | NUR ---
SURGICAL CONSULT ACCORDING TO DR DAVID'S CONSULT NOTE, HE DOES NOT PLACE LEVAR CATHETERS. NEW CONSULT FOR RADIOLOGIST PLACED.
--- NOTE | 2020-03-01 11:30 | NUR ---
BLOOD GLUCOSE CHECKED PATIENTS GLUCOSE ORDERED, 263. WILL ADMINISTERED 6 UNITS REGULAR INSULIN ORDERED.
[2020-03-01 12:48] VITALS: BP 115/68
--- NOTE | 2020-03-01 13:00 | NUR ---
RADIOLOGY CONSULT RECEIVED CALL FROM RADIOLOGY REGARDING ORDER FOR LEVAR CATH PLACEMENT. ACCORDING TO RADIOLOGY DR CRUZ ONLY PLACES TUNNELED DIALYSIS CATHETERS. THIS RN WAS ADVISED TO ASK DR ZHONG, DR LANDAVERDE, OR DR CRAIG TO PLACE A BEDSIDE LEVAR CATH. WILL NOTIFY MD AND CONTINUE CARE.
--- NOTE | 2020-03-01 13:05 | NUR ---
DOCTOR AT BEDSIDE DR. JAY AT BEDSIDE. NEW ORDERS RECEIVED WILL CARRY OUT.
[2020-03-01 16:47] VITALS: BP 122/70
--- NOTE | 2020-03-01 18:20 | NUR ---
SPOKE WITH MD SPOKE WITH DR TAYLA KATE REGARDING PATIENT'S STATUS. D/T POSITIVE BRAIN MRI RESULTS AND IMPROVING BUN/CT, DR KATE WOULD LIKE TO BE NOTIFIED IN AM OF NEW LABS BEFORE PROCEEDING WITH LEVAR CATHETER PLACEMENT AND SUBSEQUENT HEMODIALYSIS. COMMUNICATION ORDER PLACED.
[2020-03-01 22:00] VITALS: BP 120/61
[2020-03-01] MEDS: ATORVASTATIN 20 MG TAB PO SCH (22:00)
[2020-03-01] MEDS: ACETAMINOPHEN 500 MG TAB PO PRN (22:56)
--- NOTE | 2020-03-01 22:56 | NUR ---
Elevated temperature Axillary temperature of 101.1. Cooling measures implemented. Tylenol given prn. Instructed patient to swallow. Water given first then Tylenol pill. Patient did not chew pill, moved pill around in his mouth for several minutes. Audible crunching of pill heard, more water given until pill was dissolved. No issues noted, will continue to monitor.
--- NOTE | 2020-03-01 23:56 | NUR ---
Temperature recheck Axillary temperature is now 99.0. Patient is resting comfortably in bed, no S/S of distress noted, sitter is at bedside for safety.
--- NOTE | 2020-03-02 | NUR ---
Attempted to place NG tube to right and left nare, unable to advance. Patient noncompliant and throwing head side to side. quality control analyst made aware, instructed to notify MD in the morning.
[2020-03-02 05:00] VITALS: BP 132/86
[2020-03-02] MEDS: GABAPENTIN 300 MG CAP PO SCH ×3 (05:47→22:42)
[2020-03-02] MEDS: DOBUTamine 1000MCG/ML 250 ML IV SCH ×3 (05:47→16:32)
[2020-03-02] MEDS: BACLOFEN 10 MG TAB PO SCH ×3 (05:47→22:42)
--- NOTE | 2020-03-02 05:48 | NUR ---
0600 meds held, aware.
[2020-03-02] MEDS: ACCU-CHEK COMFORT CURVE STRIP VI SCH ×4 (06:47→22:42)
[2020-03-02] MEDS: InsuLIN REG 1unit/0.01ml Soln (100units/ml) SC SCH ×4 (06:47→22:43)
--- NOTE | 2020-03-02 06:48 | NUR ---
0700 insulin held for blood sugar of 187. Patient is NPO and has not eaten since yesterday.
[2020-03-02 08:00] VITALS: BP 166/90
[2020-03-02 08:19] LABS: Basophils # (auto) 0 10 ^3/uL (0-0.2); Basophils % (auto) 0.5 % (0.0-2.0); Eosinophils # (auto) 0 10 ^3/uL (0-0.8); Eosinophils % (auto) 1.2 % (0.0-7.0); Hematocrit 43.7 % (41.0-53.0); Mean Corpuscular Hemoglobin 28.8 pg (28.0-32.0); Mean Corpuscular Volume 89.9 fL (80.0-100.0); Neutrophils # (auto) 1.8 10 ^3/uL (1.6-8.6); Neutrophils % (auto) 64.6 % (37.0-80.0); Nucleated Red Blood Cells % 0.3 %; Platelet Count (auto) 198 10^3/uL (140-450); Red Blood Cells 4.86 10^6/uL (4.5-5.90); Red Cell Distribution Width 14.4 % (11.8-14.3); White Blood Cell 2.8 10^3/uL (4.4-10.8)
[2020-03-02 08:23] LABS: Lymphocytes # (auto) 0.5 10 ^3/uL (0.4-5.4); Lymphocytes % (auto) 16.6 % (10.0-50.0); Monocytes # (auto) 0.4 10 ^3/uL (0-1.3); Monocytes % (auto) 17.1 % (0.0-12.0)
[2020-03-02 08:35] LABS: Albumin 2.6 g/dL (3.4-5.0); BUN/Creatinine Ratio 10.3; Calcium 8.3 mg/dL (8.5-10.1); Potassium 3.6 mmol/L (3.5-5.1)
[2020-03-02 08:38] LABS: Bilirubin, Total 0.5 mg/dL (0.2-1.0); Total Protein 6.8 g/dL (6.4-8.2)
[2020-03-02 09:00] VITALS: BP 166/98
[2020-03-02] MEDS: cefTRIAXone 1GM/50ML D5W 50 ML IV SCH (09:00)
[2020-03-02] MEDS: LINEZOLID 600MG/300ML 300 ML IV SCH ×2 (09:36→22:42)
[2020-03-02] MEDS: CLOPIDOGREL BISULFATE 75 MG TAB PO SCH (09:37)
[2020-03-02] MEDS: ASPirin-EC 81 mg tab PO SCH (09:37)
[2020-03-02] MEDS: DOCUSATE SOD 100 MG CAP PO SCH ×2 (09:37→22:00)
[2020-03-02] MEDS: SACUBITRIL-VALSARTAN 24mg/26mg TAB PO SCH ×2 (09:37→22:42)
--- NOTE | 2020-03-02 12:47 | NUR ---
Nutrition Consult/Followup Note Wt 108.8 kg Pt is unable to answer questions confused with mittens on when rounded this am. per RN who was at bedside pt to get NG tube once he co-operates. Pt is with CCHO 60g diet poor po intake with multiple 0% intakes as pt is refusing. Est Energy needs: 5107-3181 kcals (17-20 kcal/kgBW), Est Protein needs: 107-128 gms/day (1.0-1.2 gm/kgBW) d/t wounds/. Will continue to monitor and reassess prn. Labs: BUN 21 H CREAT 2.03 H CA 8.3 L GLU 248 H ALB 2.8 L BM: pt with 1 BM today per RN note Skin: BS 22 low risk, full details in rn patient care note PES: 1) Obesity r/t energy intake in excess of energy needs aeb BMI of 33.8 kg/m2 2) Altered nutrition related lab values r/t current/chronic medical condition 2) aeb hyperglydemia, hypocalcemia, hypoalbuminemia Comments: Will continue to monitor PO status, skin status, pertinent labs and weight trends. Will f/u in 2-3 days 1) consider EN support with Glucerna @ 50 ml/hr per MD approval. 2) consider Glucerna 1 carton bid as PO is low. 3) Suggest a daily MVI with 500mg VitC BID 4) refer to CDE on DC. 5) Continue current plan of care
[2020-03-02 13:00] VITALS: BP 156/80
--- NOTE | 2020-03-02 19:30 | NUR ---
Opening Shift Note Assumed care of patient, awake and alert to self, answers yes or no to simple questions, tracks movement with his eyes, and per Sitter at bedside ate dinner with assistance. No S/S of distress/SOB or pain. Pond is hung in place below bladder and draining yellow urine. Instructed on POC and to call for assist PRN. Sitter at bedside for safety. Will continue to monitor for changes Q1hr and PRN.
[2020-03-02 21:59] VITALS: BP 140/93
[2020-03-02] MEDS: ATORVASTATIN 20 MG TAB PO SCH (22:42)
[2020-03-03] VITALS (7 sets, daily range): BP systolic 91–115; BP diastolic 62–75
[2020-03-03] MEDS: DOBUTamine 1000MCG/ML 250 ML IV SCH ×4 (03:25→22:33)
--- NOTE | 2020-03-03 05:46 | NUR ---
Wound care completed to right and left foot as ordered, patient tolerated well. Pillows placed under feet for comfort. Sitter at bedside for safety, will continue to monitor.
[2020-03-03] MEDS: BACLOFEN 10 MG TAB PO SCH ×3 (06:03→22:19)
[2020-03-03] MEDS: GABAPENTIN 300 MG CAP PO SCH ×3 (06:04→22:19)
[2020-03-03] MEDS: ACCU-CHEK COMFORT CURVE STRIP VI SCH ×4 (06:18→22:19)
[2020-03-03] MEDS: InsuLIN REG 1unit/0.01ml Soln (100units/ml) SC SCH ×4 (06:19→22:00)
[2020-03-03 07:46] LABS: Basophils # (auto) 0 10 ^3/uL (0-0.2); Basophils % (auto) 0.4 % (0.0-2.0); Eosinophils # (auto) 0 10 ^3/uL (0-0.8); Hematocrit 40.2 % (41.0-53.0); Hemoglobin 13.6 g/dL (13.5-17.5); Lymphocytes # (auto) 0.5 10 ^3/uL (0.4-5.4); Lymphocytes % (auto) 16.1 % (10.0-50.0); Mean Corpuscular Volume 85.3 fL (80.0-100.0); Monocytes # (auto) 0.3 10 ^3/uL (0-1.3); Monocytes % (auto) 8.7 % (0.0-12.0); Neutrophils # (auto) 2.2 10 ^3/uL (1.6-8.6); Neutrophils % (auto) 73.8 % (37.0-80.0); Nucleated Red Blood Cells % 0.1 %; Platelet Count (auto) 194 10^3/uL (140-450); Red Blood Cells 4.71 10^6/uL (4.5-5.90); Red Cell Distribution Width 14.2 % (11.8-14.3); White Blood Cell 2.9 10^3/uL (4.4-10.8)
[2020-03-03 08:07] LABS: Calcium 8.3 mg/dL (8.5-10.1); Potassium 3.5 mmol/L (3.5-5.1)
[2020-03-03 08:12] LABS: BUN/Creatinine Ratio 11.1
[2020-03-03] MEDS: LINEZOLID 600MG/300ML 300 ML IV SCH ×2 (09:15→22:18)
[2020-03-03] MEDS: cefTRIAXone 1GM/50ML D5W 50 ML IV SCH (09:15)
[2020-03-03] MEDS: SACUBITRIL-VALSARTAN 24mg/26mg TAB PO SCH ×2 (09:16→22:19)
[2020-03-03] MEDS: ASPirin-EC 81 mg tab PO SCH (09:16)
[2020-03-03] MEDS: DOCUSATE SOD 100 MG CAP PO SCH ×2 (09:16→22:19)
[2020-03-03] MEDS: FAMOTIDINE 20 MG TAB PO SCH (09:17)
[2020-03-03] MEDS: CLOPIDOGREL BISULFATE 75 MG TAB PO SCH (09:17)
[2020-03-03] MEDS: ACETAMINOPHEN 500 MG TAB PO PRN (09:57)
[2020-03-03] MEDS: ATORVASTATIN 20 MG TAB PO SCH (22:19)
[2020-03-04] VITALS (7 sets, daily range): BP systolic 101–125; BP diastolic 59–80
[2020-03-04] MEDS: GABAPENTIN 300 MG CAP PO SCH ×3 (06:34→22:26)
[2020-03-04] MEDS: BACLOFEN 10 MG TAB PO SCH ×3 (06:34→22:27)
[2020-03-04] MEDS: ACCU-CHEK COMFORT CURVE STRIP VI SCH ×4 (06:35→22:27)
[2020-03-04] MEDS: InsuLIN REG 1unit/0.01ml Soln (100units/ml) SC SCH ×4 (06:35→22:36)
[2020-03-04] MEDS: DOBUTamine 1000MCG/ML 250 ML IV SCH ×2 (07:29→18:45)
[2020-03-04] MEDS: LINEZOLID 600MG/300ML 300 ML IV SCH ×2 (08:54→22:27)
[2020-03-04] MEDS: cefTRIAXone 1GM/50ML D5W 50 ML IV SCH (08:54)
[2020-03-04] MEDS: DOCUSATE SOD 100 MG CAP PO SCH ×2 (08:54→22:26)
[2020-03-04] MEDS: SACUBITRIL-VALSARTAN 24mg/26mg TAB PO SCH ×2 (08:55→22:26)
[2020-03-04] MEDS: ASPirin-EC 81 mg tab PO SCH (08:55)
[2020-03-04] MEDS: CLOPIDOGREL BISULFATE 75 MG TAB PO SCH (08:55)
--- NOTE | 2020-03-04 11:15 | NUR ---
WOUND CARE NOTE: PATIENT IS NOW BEING FOLLOWED BY LOGISTICS LEAD, DR. JAY. PATIENT RECEIVING BID BETADINE IRRIGATION/DRESSINGS PER DR. JAY'S ORDER. NO FURTHER WOUND CARE NEEDED AT THIS TIME. CURRENT ANA MARIA SCORE IS 17. UPDATED SKIN/WOUND CARE PLAN.
--- NOTE | 2020-03-04 12:36 | NUR ---
Nutrition Consult/Followup Note Wt 108.8 kg Pt is improving per MD note, pt is still unable to answer questions. Pt is still not with NGT, consider trying again when medically feasible. Pt is NPO with no alternate nutrition ordered Est Energy needs: 5765-0573 kcals (17-20 kcal/kgBW), Est Protein needs: 107-128 gms/day (1.0-1.2 gm/kgBW) d/t wounds/. Will continue to monitor and reassess prn. Labs: BUN 20H, Creat 1.80H, Alb 2.6L, Ca 8.3L, GLUC 159H, Na 134L BM: pt with 1 BM today per RN note Skin: BS 17 mod risk, full details in acute care occupational therapist note PES: 1) Obesity r/t energy intake in excess of energy needs aeb BMI of 33.8 kg/m2 2) Altered nutrition related lab values r/t current/chronic medical condition 2) aeb hyperglydemia, hypocalcemia, hypoalbuminemia Comments: Will continue to monitor PO status, skin status, pertinent labs and weight trends. Will f/u in 2-3 days 1) consider EN support with Glucerna @ 50 ml/hr per MD approval. 2) consider Glucerna 1 carton bid as PO is low. 3) Suggest a daily MVI with 500mg VitC BID 4) refer to CDE on DC. 5) Continue current plan of care
--- NOTE | 2020-03-04 14:00 | NUR ---
Patient requested that P.T. treatment be done later.
--- NOTE | 2020-03-04 20:18 | NUR ---
SPOKE TO MD KATE, CLARIFIED JAVIER STATUS/TELE STATUS. MD KATE, WANTS PATIENT TO BE TELEMETRY STATUS NOW. MD KATE WANTED TO KNOW WHAT BUN CREATINE RATIO, BUN, CREATINE LEVELS. PROVIDED MOST RECENT LEVEL OF BUN 20 CREATININE LEVEL 1.80 AND BUN/CREATININE LEVEL RATIO 11.1. MD KATE PROVIDED ORDER TO STOP DOBUTAMINE DRIP. READ BACK AND CONFIRMED TELEMETRY STATUS AND STOPPING OF DOBUTAMINE DRIP. WILL CARRY OUT.
[2020-03-04] MEDS: MEROPENEM 1GM IVPB 100 ML IV SCH (20:44)
[2020-03-04] MEDS: ATORVASTATIN 20 MG TAB PO SCH (22:26)
--- NOTE | 2020-03-05 06:00 | NUR ---
PROVIDED FULL BED LINEN CHANGE TO PATIENT X2, ONE IN BEGINNING OF SHIFT AND ONE AT THIS TIME.
[2020-03-05] MEDS: BACLOFEN 10 MG TAB PO SCH ×3 (06:08→22:16)
[2020-03-05] MEDS: GABAPENTIN 300 MG CAP PO SCH ×3 (06:08→22:16)
[2020-03-05] MEDS: MEROPENEM 1GM IVPB 100 ML IV SCH ×3 (06:08→19:27)
[2020-03-05] MEDS: ACCU-CHEK COMFORT CURVE STRIP VI SCH ×4 (06:17→23:05)
[2020-03-05] MEDS: InsuLIN REG 1unit/0.01ml Soln (100units/ml) SC SCH ×4 (06:19→23:10)
[2020-03-05 06:23] VITALS: BP 108/73
--- NOTE | 2020-03-05 07:30 | NUR ---
PROVIDED REPORT TO DAY RN. ENDORSE TO RN CLARIFICATION ON DIET ORDER.
[2020-03-05 08:00] VITALS: BP 113/72
[2020-03-05 09:00] VITALS: BP 113/72
[2020-03-05] MEDS: LINEZOLID 600MG/300ML 300 ML IV SCH ×2 (09:12→22:22)
[2020-03-05] MEDS: ASPirin-EC 81 mg tab PO SCH (09:13)
[2020-03-05] MEDS: CLOPIDOGREL BISULFATE 75 MG TAB PO SCH (09:13)
[2020-03-05] MEDS: FAMOTIDINE 20 MG TAB PO SCH (09:13)
[2020-03-05] MEDS: DOCUSATE SOD 100 MG CAP PO SCH ×2 (09:13→22:00)
[2020-03-05] MEDS: SACUBITRIL-VALSARTAN 24mg/26mg TAB PO SCH ×2 (09:13→22:16)
--- NOTE | 2020-03-05 11:42 | NUR ---
WELLS CATHETER DISCONTINUED
--- NOTE | 2020-03-05 12:35 | NUR ---
Assessment Patient is a 64 year old male, who is alert and oriented. Patient cognitive abilities are intact. Patient states that he can do all ADL's and ambulate independently. Patient stated that he is a diabetic. Patient states that he lives with his (Leyda [phone]), and he plans to return home post discharge for [facility]. Patient stated that he receives [employer] as income. Patient stated that his is his support system, and she will provide transportation post discharge. Patient was not receptive to receive Advance Directive forms. Discharge planning: Patient will return home post discharge, patient will follow up care with PCP post discharge. Patient will resume diabetic care at home. There are no other discharge needs to address at the moment.
--- NOTE | 2020-03-05 12:40 | NUR ---
Consultation Patient states that he lives with his (Leyda), patient plans to return home post discharge.
[2020-03-05 13:00] VITALS: BP 126/69
--- NOTE | 2020-03-05 13:27 | NUR ---
PATIENT VOIDED SUCCESSFULLY
[2020-03-05 17:00] VITALS: BP 107/64
--- NOTE | 2020-03-05 19:20 | NUR ---
Received report from Jacinto GALLO. per report, [facility] sample already collected and sent to lab. patient is resting in bed with no signs of distress.
--- NOTE | 2020-03-05 19:37 | NUR ---
DRESSINGS CHANGED BILATERAL FEET
[2020-03-05 22:00] VITALS: BP 118/68
[2020-03-05] MEDS: ATORVASTATIN 20 MG TAB PO SCH (22:16)
--- NOTE | 2020-03-05 23:21 | NUR ---
SPOKE TO MD KATE, AND NOTIFIED PATIENT IS GETTING AGITATED. MD KATE PROVIDED NEW ORDER: XANAX PO 0.25 MG TID PRN FOR AGITATION. READ BACK ORDER TO MD KATE, AND VERBALLY CONFIRMED ORDER, WILL CARRY OUT.
[2020-03-05] MEDS ORDERED: ALPRAZolam 0.25 MG TAB PO PRN (23:30)
[2020-03-06] MEDS: MEROPENEM 1GM IVPB 100 ML IV SCH ×3 (04:35→20:04)
--- NOTE | 2020-03-06 04:43 | NUR ---
patient refused photo taken of redness in buttocks area.
[2020-03-06 05:00] VITALS: BP 93/67
[2020-03-06] MEDS: ACCU-CHEK COMFORT CURVE STRIP VI SCH ×4 (07:07→21:38)
[2020-03-06] MEDS: GABAPENTIN 300 MG CAP PO SCH ×3 (07:07→21:38)
[2020-03-06] MEDS: BACLOFEN 10 MG TAB PO SCH ×3 (07:07→21:38)
[2020-03-06] MEDS: InsuLIN REG 1unit/0.01ml Soln (100units/ml) SC SCH ×4 (07:11→22:03)
--- NOTE | 2020-03-06 07:30 | NUR ---
Opening Shift Note Assumed care of patient, awake and alert bed is locked and in lowest position bed rails up x2 , sitter at bedside. No S/S of distress/SOB or pain. Instructed on POC and to call for assistance PRN, will continue to monitor for changes Q1hr and PRN.
[2020-03-06 08:29] LABS: Potassium 3.9 mmol/L (3.5-5.1)
[2020-03-06 08:35] LABS: BUN/Creatinine Ratio 17.2; Calcium 8.1 mg/dL (8.5-10.1)
[2020-03-06 08:46] LABS: Basophils # (auto) 0 10 ^3/uL (0-0.2); Basophils % (auto) 0.4 % (0.0-2.0); Eosinophils # (auto) 0.1 10 ^3/uL (0-0.8); Eosinophils % (auto) 1.7 % (0.0-7.0); Hemoglobin 14.4 g/dL (13.5-17.5); Lymphocytes # (auto) 1.2 10 ^3/uL (0.4-5.4); Lymphocytes % (auto) 23.2 % (10.0-50.0); Mean Corpuscular Hemoglobin 28.7 pg (28.0-32.0); Mean Corpuscular Hgb Conc. 33.4 g/dL (32.0-36.0); Mean Corpuscular Volume 85.8 fL (80.0-100.0); Monocytes # (auto) 0.3 10 ^3/uL (0-1.3); Monocytes % (auto) 5.3 % (0.0-12.0); Neutrophils # (auto) 3.5 10 ^3/uL (1.6-8.6); Neutrophils % (auto) 69.4 % (37.0-80.0); Nucleated Red Blood Cells % 0.2 %; Platelet Count (auto) 109 10^3/uL (140-450); Red Blood Cells 5.01 10^6/uL (4.5-5.90); Red Cell Distribution Width 14.4 % (11.8-14.3); White Blood Cell 5.1 10^3/uL (4.4-10.8)
[2020-03-06 08:50] VITALS: BP 110/69
[2020-03-06] MEDS: DOCUSATE SOD 100 MG CAP PO SCH ×2 (09:35→21:38)
[2020-03-06] MEDS: ASPirin-EC 81 mg tab PO SCH (09:35)
[2020-03-06] MEDS: CLOPIDOGREL BISULFATE 75 MG TAB PO SCH (09:35)
[2020-03-06] MEDS: SACUBITRIL-VALSARTAN 24mg/26mg TAB PO SCH ×2 (09:35→21:38)
[2020-03-06] MEDS: LINEZOLID 600MG/300ML 300 ML IV SCH (09:38)
--- NOTE | 2020-03-06 10:52 | NUR ---
WOUND CARE NOTE: Patient is 64 years old male with admitting diagnosis of STEMI. Patient seen by wound care on 02/25/20 for L foot stump and Rt great toe amputation site with open, hyperkeratotic DFU. Patient seen by electronics engineering technician and ordered daily cleaning of BLE wounds with Betadine and cover with dry dressing. Patient then reevaluated by wound care and taken off list as patient followed by electronics engineering technician. New wound care request received regarding new skin issue that are noted by bedside nurse upon assessment. Patient is resting in bed in Rm. 277B. Patient is awake and follow simple direction. Patient is in no stated pain at this time and he appears to be in no pain using Gacria Hines Faces Pain Scale. He's able to turn and reposition self and his Daniel score is 23. Nurse's aide at bedside reported that patient is having multiple episode of loose stools. Patient developed moisture associated dermatitis to lower buttocks,upper posterior thighs and posterior scrotal area. Margot care given, photograph of patient's sacral,buttocks are taken for reference and applied Z Guard cream. Patient tolerated well. Nurse's aide at bedside. RECOMMENDATION: Nursing to continue with BID/PRN cleaning and application of Z Guard cream to sacral, buttocks per MD order,continuation of all other wound care orders MD prescribed, continue with skin/wound plan of care, frequent margot care/check, keep clean and dry, continue monitoring by wound care while patient is hospitalized. Addendum: 03/06/20 at 1538 by Helga Tomlinson RN Amended: Links added.
--- NOTE | 2020-03-06 12:30 | NUR ---
CALLED PHARMACY FOR PATIENTS KIYA SAID THEY WOULD SEND IT UP.
--- NOTE | 2020-03-06 12:44 | NUR ---
Nutrition Followup Note Wt 108.9 kg Pt was off the floor for AJIT per RN. pt was NPO this am now resumed with CCHO 45 gm renal diet with inadequate PO of < 50% x 4 per RN doc Est Energy needs: 9098-1416 kcals (17-20 kcal/kgBW), Est Protein needs: 107-128 gms/day (1.0-1.2 gm/kgBW) d/t wounds/. Will continue to monitor and reassess prn. Labs: GLU 133 H CA 8.1 L BUN 28 H CREAT 1.63 H BM: pt with 1 BM today per RN note Skin: BS 23 low risk, full details in adult live in caregiver note PES: 1) Obesity r/t energy intake in excess of energy needs aeb BMI of 33.8 kg/m2 2) Altered nutrition related lab values r/t current/chronic medical condition 2) aeb hyperglydemia, hypocalcemia, hypoalbuminemia Comments: Will continue to monitor PO status, skin status, pertinent labs and weight trends. Will f/u in 3-5 days 1) consider Glucerna 1 carton bid as PO is low. 2) consider CCHO 60 gm diet as needs are higher and pt not on HD. 3) Suggest a daily MVI with 500mg VitC BID 4) refer to CDE on DC. 5) Continue current plan of care
[2020-03-06 13:00] VITALS: BP 115/70
[2020-03-06] MEDS: ACETAMINOPHEN 500 MG TAB PO PRN (14:50)
--- NOTE | 2020-03-06 16:40 | NUR ---
I spoke with patient, he is alert to name but not able to carry on a conversation-only answers yes or no to questions. I called his Leyda [phone], she said she has been his caregiver for years and wants him to come back home. Per Leyda he already has a wheelchair, walker and a bedside commode at home. I called Physical Therapy and spoke with Berna-asked her to re-evaluate patient to see if he is safe enough to go home-she said she will re-assess him and put a note in.
[2020-03-06 16:49] VITALS: BP 111/70
--- NOTE | 2020-03-06 17:24 | NUR ---
I spoke with nurse Maryjo to let her know that patient already has needed equipment at home-but that due to patient's insurance [employer]AU[employer]-we may not be able to obtain a home health agency until Sunday. She will let Dr. Johnson know.
[2020-03-06] MEDS: ATORVASTATIN 20 MG TAB PO SCH (21:38)
[2020-03-06 21:53] VITALS: BP 118/69
--- NOTE | 2020-03-06 22:00 | NUR ---
IV insertion IV access obtained, via clean sterile technique by inserting 22 gauge catheter at RFA after 1 attempt(s). IV secured properly. No trauma to site. Patient tolerated well. IV removal from LFA due to pain and IV not flushing IV DC'd with clean sterile technique, catheter fully intact. Pressure dressing applied to site. Patient tolerated well.
[2020-03-07] MEDS: LINEZOLID 600MG/300ML 300 ML IV SCH ×3 (00:25→22:29)
[2020-03-07] MEDS: MEROPENEM 1GM IVPB 100 ML IV SCH ×3 (04:19→20:03)
[2020-03-07] MEDS: PROMETHAZINE HCL 25 MG/ML 1ML IV PRN (04:42)
--- NOTE | 2020-03-07 04:42 | NUR ---
Phenergan given prn for vomiting. Patient threw up in the bed and was still complaining of nausea. He stated he didn't feel like he was going to get sick and it just came out. Complete linen change done, sitter at bedside for safety, will continue to monitor.
[2020-03-07 05:18] VITALS: BP 106/80
[2020-03-07] MEDS: GABAPENTIN 300 MG CAP PO SCH ×3 (06:00→22:00)
[2020-03-07] MEDS: BACLOFEN 10 MG TAB PO SCH ×3 (06:00→22:00)
[2020-03-07] MEDS: InsuLIN REG 1unit/0.01ml Soln (100units/ml) SC SCH ×4 (06:39→22:30)
[2020-03-07] MEDS: ACCU-CHEK COMFORT CURVE STRIP VI SCH ×4 (06:40→22:29)
--- NOTE | 2020-03-07 07:05 | NUR ---
Endorsed care to Teresa RN. Patient is resting in bed, sitter at bedside for safety.
--- NOTE | 2020-03-07 07:06 | NUR ---
Opening Shift Note: Assumed care of patient. Patient asleep at this time. No S/S of distress/SOB or pain. Bed in lowest locked position, side rials up x 2, call light within reach. Sitter at bedside for patient safety. Patient instructed on POC and to call for assist PRN, will continue to monitor for changes Q1hr and PRN.
[2020-03-07 08:42] VITALS: BP 112/77
[2020-03-07] MEDS: SACUBITRIL-VALSARTAN 24mg/26mg TAB PO SCH ×2 (10:00→22:00)
[2020-03-07] MEDS: ASPirin-EC 81 mg tab PO SCH (10:00)
[2020-03-07] MEDS: CLOPIDOGREL BISULFATE 75 MG TAB PO SCH (10:00)
[2020-03-07] MEDS: DOCUSATE SOD 100 MG CAP PO SCH ×2 (10:00→22:00)
--- NOTE | 2020-03-07 10:15 | NUR ---
Ana Laura Hess called regarding home health services of patient.
[2020-03-07] MEDS: FAMOTIDINE 20 MG TAB PO SCH (11:53)
--- NOTE | 2020-03-07 11:53 | NUR ---
NOTIFIED NOTIFIED DR. Herberth KATE THAT PATIENT HAS BEEN UNABLE TO TAKE PO MEDICATIONS DUE TO N/V THIS MORNING.
--- NOTE | 2020-03-07 12:36 | NUR ---
SPOKE WITH MD DR. Herberth KATE AWARE OF N/V, NEW ORDERS RECEIVED. READ BACK AND VERIFIED.
--- NOTE | 2020-03-07 13:11 | NUR ---
DR. MORRELL: DR. COWAN AT BEDSIDE.
[2020-03-07] MEDS: ONDANSETRON HCL 4 MG/2 ML VIAL IV PRN ×3 (13:20→23:25)
[2020-03-07 13:37] VITALS: BP 138/75
--- NOTE | 2020-03-07 14:00 | NUR ---
Dr. Herberth Johnson at bedside. Gave orders to have hospitalist see patient.
--- NOTE | 2020-03-07 14:59 | NUR ---
PATIENT DID NOT WANT TO SIT AT THE EDGE OF THE BED AND STATED HE DID NOT WANT TO PARTICIPATE IN PT. PT HAD C/O PAIN. PT REQUIRED MODA WITH BED MOBILITY, ASSISTING TORCH BRAZER TO HAVE PATIENT CLEANED UP. ADVISED PATIENT WOULD DOCUMENT THAT HE REFUSED TO PARTICIPATE IN PT Addendum: 03/07/20 at 1501 by Azra Chowdhury PT Amended: Links added.
[2020-03-07 16:38] VITALS: BP 128/82
[2020-03-07] MEDS: SUCRALFATE 1 GM/10 ML ORAL SUSP PO SCH ×2 (18:28→22:00)
--- NOTE | 2020-03-07 18:40 | NUR ---
WOUND CARE PERFORMED PER ORDERS.
--- NOTE | 2020-03-07 19:08 | NUR ---
CLOSING NOTE: PATIENT RESTING IN BED. NO S/S OF DISTRESS. SITTER AT BEDSIDE.
--- NOTE | 2020-03-07 19:30 | NUR ---
Opening Shift Note Assumed care of patient, awake and alert x3. No S/S of distress/SOB or pain. Instructed on POC and to call for assist PRN. Call light is within reach, sitter is at bedside for safety, will continue to monitor for changes Q1hr and PRN.
[2020-03-07] MEDS: SODIUM CHLORIDE 0.9% 1,000 ML IV SCH (20:03)
[2020-03-07 22:00] VITALS: BP 132/86
[2020-03-07] MEDS: ATORVASTATIN 20 MG TAB PO SCH (22:00)
--- NOTE | 2020-03-07 22:00 | NUR ---
Patient refused PO medications stating he was too nauseated. IVP medications, insulin, and IV antibiotics given.
[2020-03-07] MEDS: PANTOPRAZOLE 40 MG/10 ML VIAL INJ IV SCH (22:29)
--- NOTE | 2020-03-07 23:06 | NUR ---
Patient was incontinent and while cleaning him, he had an episode of nausea and vomiting while being laid flat. Placed in the high fowlers position, he threw up 200 cc of dark brown/reddish liquid. Patient said when he wasn't laying flat he felt nauseous but not like throwing up, once he was on his back he got sick. Zofran given prn for Nausea. Will continue to monitor.
[2020-03-08] MEDS: MEROPENEM 1GM IVPB 100 ML IV SCH ×3 (03:48→20:40)
[2020-03-08 05:00] VITALS: BP 110/69
[2020-03-08] MEDS: GABAPENTIN 300 MG CAP PO SCH ×3 (06:00→21:14)
[2020-03-08] MEDS: BACLOFEN 10 MG TAB PO SCH ×3 (06:00→21:14)
[2020-03-08] MEDS: InsuLIN REG 1unit/0.01ml Soln (100units/ml) SC SCH ×4 (06:28→21:16)
[2020-03-08] MEDS: ONDANSETRON HCL 4 MG/2 ML VIAL IV PRN (06:28)
[2020-03-08] MEDS: ACCU-CHEK COMFORT CURVE STRIP VI SCH ×4 (06:28→21:15)
--- NOTE | 2020-03-08 06:28 | NUR ---
Patient refused PO medications stating he was too nauseated. Zofran prn given for nausea, will continue to monitor.
[2020-03-08 06:41] LABS: Basophils # (auto) 0 10 ^3/uL (0-0.2); Basophils % (auto) 0.5 % (0.0-2.0); Eosinophils # (auto) 0 10 ^3/uL (0-0.8); Eosinophils % (auto) 0.2 % (0.0-7.0); Hematocrit 41.4 % (41.0-53.0); Hemoglobin 13.8 g/dL (13.5-17.5); Lymphocytes # (auto) 0.9 10 ^3/uL (0.4-5.4); Lymphocytes % (auto) 18.7 % (10.0-50.0); Mean Corpuscular Hemoglobin 28.1 pg (28.0-32.0); Mean Corpuscular Hgb Conc. 33.4 g/dL (32.0-36.0); Mean Corpuscular Volume 84.2 fL (80.0-100.0); Monocytes # (auto) 0.5 10 ^3/uL (0-1.3); Monocytes % (auto) 9.7 % (0.0-12.0); Neutrophils # (auto) 3.6 10 ^3/uL (1.6-8.6); Neutrophils % (auto) 70.9 % (37.0-80.0); Nucleated Red Blood Cells % 0.2 %; Platelet Count (auto) 82 10^3/uL (140-450); Red Blood Cells 4.91 10^6/uL (4.5-5.90); Red Cell Distribution Width 14.5 % (11.8-14.3); White Blood Cell 5.1 10^3/uL (4.4-10.8)
--- NOTE | 2020-03-08 06:56 | NUR ---
CLOSING NOTE: PATIENT RESTING IN BED. NO S/S OF DISTRESS. SITTER AT BEDSIDE.
--- NOTE | 2020-03-08 07:15 | NUR ---
Opening Shift Note: Assumed care of patient. Patient asleep at this time. No S/S of distress/SOB or pain. Bed in lowest locked position, side rails up x 2, call light within reach. Sitter at bedside for patient safety. Patient will be instructed on POC and to call for assist PRN, will continue to monitor for changes Q1hr and PRN.
[2020-03-08 09:00] VITALS: BP 107/70
[2020-03-08] MEDS: SODIUM CHLORIDE 0.9% 1,000 ML IV SCH ×2 (09:18→23:36)
[2020-03-08] MEDS: DOCUSATE SOD 100 MG CAP PO SCH ×2 (09:54→21:14)
[2020-03-08] MEDS: ASPirin-EC 81 mg tab PO SCH (09:55)
[2020-03-08] MEDS: CLOPIDOGREL BISULFATE 75 MG TAB PO SCH (09:55)
[2020-03-08] MEDS: SACUBITRIL-VALSARTAN 24mg/26mg TAB PO SCH ×2 (09:55→21:14)
[2020-03-08] MEDS: LINEZOLID 600MG/300ML 300 ML IV SCH ×2 (09:59→22:21)
[2020-03-08] MEDS: PANTOPRAZOLE 40 MG/10 ML VIAL INJ IV SCH ×2 (09:59→22:21)
[2020-03-08] MEDS: SUCRALFATE 1 GM/10 ML ORAL SUSP PO SCH ×3 (11:30→21:14)
--- NOTE | 2020-03-08 12:33 | NUR ---
1130 03/08/20 - Contacted nurse Ismael requesting to clarify order for home care nurse and f/u/ Nurse stated she will contact MD, get clarification and submit updated order.
--- NOTE | 2020-03-08 13:07 | NUR ---
ATTEMPTED TO CONTACT DR. Vandana KATE AT THIS TIME.
[2020-03-08 13:16] VITALS: BP 116/68
--- NOTE | 2020-03-08 15:24 | NUR ---
SPOKE WITH AFTER SHE PROVIDED PASSWORD. UPDATED ON POC.
--- NOTE | 2020-03-08 16:47 | NUR ---
ATTEMPTED WOUND CARE AT THIS TIME. PATIENT SLEEPING, WILL ATTEMPT AT A LATER TIME.
--- NOTE | 2020-03-08 18:51 | NUR ---
CLOSING NOTE: PATIENT RESTING IN BED. NO S/S OF DISTRESS. UNABLE TO DO WOUND CARE, WILL ENDORSED TO NOC RN
--- NOTE | 2020-03-08 20:05 | NUR ---
open note assumed care of pt, upon entering room sitter at bedside, pt on 2L nc no distress observed or verbalized. pt oriented to this nurse and updated on plan of care. pt denies any pain. pt bed locked, low and 2x rails up. call light in reach, this nurse to round q1hr and prn. pt encouraged to call as needed.
[2020-03-08] MEDS: ATORVASTATIN 20 MG TAB PO SCH (21:14)
[2020-03-08 21:30] VITALS: BP 119/74
[2020-03-09] MEDS: MEROPENEM 1GM IVPB 100 ML IV SCH ×3 (04:00→21:11)
[2020-03-09 05:00] VITALS: BP 110/69
[2020-03-09] MEDS: BACLOFEN 10 MG TAB PO SCH ×3 (06:15→21:13)
[2020-03-09] MEDS: GABAPENTIN 300 MG CAP PO SCH ×3 (06:15→21:14)
[2020-03-09] MEDS: ACCU-CHEK COMFORT CURVE STRIP VI SCH ×4 (06:15→21:14)
[2020-03-09] MEDS: SUCRALFATE 1 GM/10 ML ORAL SUSP PO SCH ×4 (06:42→21:13)
[2020-03-09] MEDS: InsuLIN REG 1unit/0.01ml Soln (100units/ml) SC SCH ×4 (06:42→21:14)
[2020-03-09 08:00] VITALS: BP 101/69
[2020-03-09 09:00] VITALS: BP 101/69
[2020-03-09] MEDS: DOCUSATE SOD 100 MG CAP PO SCH ×2 (09:40→21:13)
[2020-03-09] MEDS: ASPirin-EC 81 mg tab PO SCH (09:40)
[2020-03-09] MEDS: CLOPIDOGREL BISULFATE 75 MG TAB PO SCH (09:40)
[2020-03-09] MEDS: FAMOTIDINE 20 MG TAB PO SCH (09:41)
[2020-03-09] MEDS: PANTOPRAZOLE 40 MG/10 ML VIAL INJ IV SCH ×2 (09:42→21:12)
[2020-03-09] MEDS: LINEZOLID 600MG/300ML 300 ML IV SCH ×2 (10:00→21:13)
[2020-03-09] MEDS: SACUBITRIL-VALSARTAN 24mg/26mg TAB PO SCH ×2 (10:00→21:13)
--- NOTE | 2020-03-09 12:24 | NUR ---
Nutrition Followup Note Wt 99.9kg Pt was sitting up in bed with Rn helping pt at time of rounds. Pt with no new distress, N/V and no pain today per MD note. Pt tolerating po intake well per MD note. Pt with no po intake recorded by RN since 03/05 per RN nutrition note. Est Energy needs: 2989-6200 kcals (17-20 kcal/kgBW), Est Protein needs: 107-128 gms/day (1.0-1.2 gm/kgBW) d/t wounds/. Will continue to monitor and reassess prn. Labs: GLUC 153H, BUN 28H, Creat 1.63H, Alb 2.6L, Ca 8.1L, Na 135L BM: pt with 3 BMs today per RN note Skin: BS 14 mod risk, full details in healthcare account manager note PES: 1) Obesity r/t energy intake in excess of energy needs aeb BMI of 33.8 kg/m2 2) Altered nutrition related lab values r/t current/chronic medical condition 2) aeb hyperglydemia, hypocalcemia, hypoalbuminemia Comments: Will continue to monitor PO status, skin status, pertinent labs and weight trends. Will f/u in 3-5 days 1) consider Glucerna 1 carton bid as PO is low. 2) consider CCHO 60 gm diet as needs are higher and pt not on HD. 3) Suggest a daily MVI with 500mg VitC BID 4) refer to CDE on DC. 5) Continue current plan of care
[2020-03-09 12:30] VITALS: BP 124/71
[2020-03-09] MEDS: SODIUM CHLORIDE 0.9% 1,000 ML IV SCH ×2 (13:14→21:11)
--- NOTE | 2020-03-09 16:48 | NUR ---
1400 Faxed to [facility] at [phone] face sheet, order for home PT, and wound care. Spoke with Intake showcase maker Marielos who confirmed receiving faxed documents. Marielos also stated once she reviews the packet, she will call me back.
--- NOTE | 2020-03-09 16:55 | NUR ---
D/C Planning Regarding social service consult for home health physical therapy and wound care. Faxed clinical information to [facility], [facility], [facility], [facility], [facility], [facility], [place], [place], and [facility]. [facility], [facility], [place], [place], and [facility] are not currently accepting patient health plan. [facility] and [facility] do take patient health plan but they do not covered the area of [place]. Per Dany with [facility] they are working on a contract with patient health plan and will see if they can do an HUSEYIN. Will follow up with Shweta in the morning. Informed CLEO Hensley.
[2020-03-09 17:00] VITALS: BP 126/82
--- NOTE | 2020-03-09 20:00 | NUR ---
DR ESTRADA IN TO SEE PATIENT. ORDERS MADE AND NOTED.
[2020-03-09] MEDS: ATORVASTATIN 20 MG TAB PO SCH (21:14)
[2020-03-09 22:01] VITALS: BP 99/60
[2020-03-10 01:40] LABS: Albumin 2.3 g/dL (3.4-5.0); Calcium 7.9 mg/dL (8.5-10.1); Potassium 3.9 mmol/L (3.5-5.1)
[2020-03-10 01:42] LABS: BUN/Creatinine Ratio 23.7
[2020-03-10 01:46] LABS: Bilirubin, Total 0.6 mg/dL (0.2-1.0); Total Protein 5.9 g/dL (6.4-8.2)
--- NOTE | 2020-03-10 02:30 | NUR ---
PATIENT IS SO CONFUSED AND WANTED TO GO HOME. REORIENTATION GIVEN AND STILL INSISTED TO GO HOME. EXPLAINED TO PATIENT THAT THE DOCTOR WILL RELEASE HIM TODAY SOON CONSUMER MARKETING MANAGER FINDS AN AGENCY TO TAKE CARE OF HIS MEDICAL NEEDS AFTER DISCHARGE. PATIENT JUST LAUGHED AT ME. WILL KEEP AN EYE ON PATIENT.
[2020-03-10 04:00] VITALS: BP 98/67
[2020-03-10] MEDS: MEROPENEM 1GM IVPB 100 ML IV SCH ×3 (04:41→20:41)
--- NOTE | 2020-03-10 05:00 | NUR ---
PATIENT HAD AN ACCIDENT AND REFUSED TO BE CHANGED. IV ACCESS ON THE RIGHT FOREARM IS INFILTRATED. REFUSED TO HAVE ANOTHER IV STARTED. CONSEQUENCES EXPLAINED AND HE SAID, "NO, NO, NO "!
--- NOTE | 2020-03-10 05:44 | NUR ---
PT REFUSED TO BE CLEAN AND REFUSED VITALS
[2020-03-10] MEDS: GABAPENTIN 300 MG CAP PO SCH ×3 (06:00→22:33)
[2020-03-10] MEDS: BACLOFEN 10 MG TAB PO SCH ×3 (06:00→22:33)
[2020-03-10] MEDS: ACCU-CHEK COMFORT CURVE STRIP VI SCH ×4 (06:20→22:42)
[2020-03-10] MEDS: InsuLIN REG 1unit/0.01ml Soln (100units/ml) SC SCH ×4 (06:20→22:00)
[2020-03-10] MEDS: SUCRALFATE 1 GM/10 ML ORAL SUSP PO SCH ×4 (06:20→22:32)
--- NOTE | 2020-03-10 07:00 | NUR ---
PATIENT CONTINUED TO REFUSED IV START. WILL ENDORSE TO AM SHIFT RN.
[2020-03-10] MEDS: DOCUSATE SOD 100 MG CAP PO SCH ×2 (10:00→22:33)
[2020-03-10] MEDS: PANTOPRAZOLE 40 MG/10 ML VIAL INJ IV SCH ×2 (10:00→22:36)
[2020-03-10] MEDS: LINEZOLID 600MG/300ML 300 ML IV SCH ×2 (11:13→22:43)
[2020-03-10] MEDS: ASPirin-EC 81 mg tab PO SCH (11:14)
[2020-03-10] MEDS: CLOPIDOGREL BISULFATE 75 MG TAB PO SCH (11:15)
--- NOTE | 2020-03-10 11:19 | NUR ---
1100 03/10/20 - Contacted by MARKELL case work aide Andres who stated [facility] contact info [phone] has accepted patient for home health services.
[2020-03-10] MEDS: SACUBITRIL-VALSARTAN 24mg/26mg TAB PO SCH ×2 (11:20→22:33)
[2020-03-10 13:00] VITALS: BP 144/68
--- NOTE | 2020-03-10 14:06 | NUR ---
1300 03/10/20 - Contacted by MARKELL digital strategy manager who provided authorization [id number] for Home Health agency [facility].
--- NOTE | 2020-03-10 16:53 | NUR ---
Paged Case management twice in regards to patient's discharge. Patient's had concerns in regards to him being discharged with no assistance at home. Awaiting call back from case management.
--- NOTE | 2020-03-10 16:54 | NUR ---
Paged Dr Johnson twice to get new order for discharge and discuss patient's concern for him to be discharged home and awaiting call back.
--- NOTE | 2020-03-10 18:49 | NUR ---
Attempted three [address] Johnson to get discharge order as one in the patient's chart was from previous day but to no avail. No return calls from Physician. Called and informed patient's spouse ( Leyda) about potential discharge and she had questions about DME and had not been told about Home health arrangement from case management and had some questions about the care and home health. Called Case management additional three times and left voice messages and there was no response. Patient's was still awaiting discharge and is unable to drive at night and no orders to discharge have been given.
--- NOTE | 2020-03-10 19:19 | NUR ---
Opening Shift Note Assumed care of patient after receiving report from CLEO Anthony. Patient is awake and alert to self and place with no S/S of distress/SOB or pain. Call light within reach, bed in lowest locked position x2 side rails up and sitter at bedside for safety, HOB semi fowlers. Instructed on POC and to call for assist PRN, will continue to monitor for changes Q1hr and PRN.
[2020-03-10] MEDS: SODIUM CHLORIDE 0.9% 1,000 ML IV SCH (19:27)
--- NOTE | 2020-03-10 21:28 | NUR ---
IV Removal / Insertion IV to right hand/finger noted to be occluded. IV DC'd with clean sterile technique, catheter fully intact. Pressure dressing applied to site. Patient tolerated well. IV access obtained, via clean sterile technique by inserting 22 gauge catheter at right lower forearm after 1 attempt. IV secured properly. No trauma to site. Patient tolerated well. IV abx continued.
[2020-03-10 21:36] VITALS: BP 101/54
[2020-03-10] MEDS: ATORVASTATIN 20 MG TAB PO SCH (22:32)
[2020-03-11] MEDS: SODIUM CHLORIDE 0.9% 1,000 ML IV SCH (01:55)
--- NOTE | 2020-03-11 03:00 | NUR ---
Dressing change Wound dressing change performed to bilateral foot wounds. Patient cleaned after BM and Zgaurd applied to sacrum. Patient repositioned for comfort. Patient tolerated intervention well. Will continue to monitor.
[2020-03-11] MEDS: MEROPENEM 1GM IVPB 100 ML IV SCH ×2 (03:54→12:43)
[2020-03-11 04:59] VITALS: BP 132/77
[2020-03-11] MEDS: ACCU-CHEK COMFORT CURVE STRIP VI SCH ×2 (06:27→12:43)
[2020-03-11] MEDS: SUCRALFATE 1 GM/10 ML ORAL SUSP PO SCH ×2 (06:32→11:30)
[2020-03-11] MEDS: GABAPENTIN 300 MG CAP PO SCH (06:32)
[2020-03-11] MEDS: BACLOFEN 10 MG TAB PO SCH (06:32)
[2020-03-11] MEDS: InsuLIN REG 1unit/0.01ml Soln (100units/ml) SC SCH ×2 (06:33→12:41)
[2020-03-11 09:00] VITALS: BP 128/70
--- NOTE | 2020-03-11 09:18 | NUR ---
Called to get discharge order from Dr Johnson, office closed and no in call service available to reach back to physician again in 30 Mins.
--- NOTE | 2020-03-11 09:29 | NUR ---
0925 03/11/20 [place] contacted patient's spouse Leyda who stated she is ready for patient to come home. did address did ask if there was some kind of medication patient could be given for his confusion and she requested the following DME items hospital bed, bed alvarado, urinal and diapers. I informed nurse FB of the above information.
[2020-03-11] MEDS: DOCUSATE SOD 100 MG CAP PO SCH (10:00)
[2020-03-11] MEDS: PANTOPRAZOLE 40 MG/10 ML VIAL INJ IV SCH (10:57)
[2020-03-11] MEDS: LINEZOLID 600MG/300ML 300 ML IV SCH (10:58)
[2020-03-11] MEDS: ASPirin-EC 81 mg tab PO SCH (11:00)
[2020-03-11] MEDS: SACUBITRIL-VALSARTAN 24mg/26mg TAB PO SCH (11:00)
[2020-03-11] MEDS: CLOPIDOGREL BISULFATE 75 MG TAB PO SCH (11:01)
[2020-03-11] MEDS: FAMOTIDINE 20 MG TAB PO SCH (11:01)
[2020-03-11 12:50] VITALS: BP 133/74
[2020-03-11 14:30] VITALS: BP 119/77
[2020-03-11 14:56] LABS: Basophils # (auto) 0 10 ^3/uL (0-0.2); Basophils % (auto) 0.5 % (0.0-2.0); Eosinophils # (auto) 0 10 ^3/uL (0-0.8); Eosinophils % (auto) 0.9 % (0.0-7.0); Hematocrit 36.8 % (41.0-53.0); Hemoglobin 12.5 g/dL (13.5-17.5); Lymphocytes % (auto) 29.4 % (10.0-50.0); Mean Corpuscular Hemoglobin 28.5 pg (28.0-32.0); Mean Corpuscular Hgb Conc. 33.9 g/dL (32.0-36.0); Mean Corpuscular Volume 84.1 fL (80.0-100.0); Monocytes # (auto) 0.3 10 ^3/uL (0-1.3); Monocytes % (auto) 8.1 % (0.0-12.0); Neutrophils # (auto) 2.1 10 ^3/uL (1.6-8.6); Neutrophils % (auto) 61.1 % (37.0-80.0); Nucleated Red Blood Cells % 0.1 %; Platelet Count (auto) 85 10^3/uL (140-450); Red Blood Cells 4.38 10^6/uL (4.5-5.90); Red Cell Distribution Width 14.2 % (11.8-14.3); White Blood Cell 3.5 10^3/uL (4.4-10.8)
--- NOTE | 2020-03-11 15:20 | NUR ---
1500 03/11/20 - Faxed to [facility] [employer] at [phone] face sheet, order for DME items (hospital bed, urinal, bedpan, and diapers), H/P, discharge summary. Pending review and delivery to patient's home.
--- NOTE | 2020-03-11 16:24 | NUR ---
Patient discharged home with home health. Instructions on follow up appointments, wound care with home health, diet and medications given to spouse and all questions regarding discharge answered. Vitals stable and has no complaints of pain, taken off the unit into private car in wheeled chair and left hospital premises with spouse.
--- NOTE | 2020-03-11 16:25 | NUR ---
1615 03/11/20 - Contacted [employer], regarding pending delivery of DME, unable to speak with a maintenance representative, left message on voicemail with contact information.
--- NOTE | 2020-03-12 11:41 | NUR ---
1130 03/12/20 Contacted [employer] at [phone] to f/u on pending DME spoke with intake international sales representative Jaqui who stated order was being processed today and the hospital bed would be delivered today. She was unable to provided delivery time for the bedpan, urinal and diapers.
== END 2020-03-11 16:15 | disposition home health service (06) | DRG 175 ==
LOC: EDBD 07:26 → ER 07:26 → CATH 1 07:27 → CATH ICU 07:28 → TELE-EAST 16:23 → TELE-WESTW 02-25 07:15
PROVIDERS: ADMIT Nurse Practitioner Acute Care; ATTEND Specialist
PROC: 4A023N7 Measurement of Cardiac Sampling and Pressure, Left Heart, Percutaneous Approach (ICD-10-PCS; principal; 2020-02-24)
PROC: B2111ZZ Fluoroscopy of Multiple Coronary Arteries using Low Osmolar Contrast (ICD-10-PCS; 2020-02-24)
PROC: B2151ZZ Fluoroscopy of Left Heart using Low Osmolar Contrast (ICD-10-PCS; 2020-02-24)
PROC: 02723ZZ Dilation of Coronary Artery, Three Arteries, Percutaneous Approach (ICD-10-PCS; 2020-02-24)
PROC: B2131ZZ Fluoroscopy of Multiple Coronary Artery Bypass Grafts using Low Osmolar Contrast (ICD-10-PCS; 2020-02-24)
PROC: 04HY32Z Insertion of Monitoring Device into Lower Artery, Percutaneous Approach (ICD-10-PCS; 2020-02-24)
PROC: B218YZZ Fluoroscopy of Left Internal Mammary Bypass Graft using Other Contrast (ICD-10-PCS; 2020-02-24)
PROC: 02JA3ZZ Inspection of Heart, Percutaneous Approach (ICD-10-PCS; 2020-02-24)
PROC: B2151ZZ Fluoroscopy of Left Heart using Low Osmolar Contrast (ICD-10-PCS; 2020-02-24)
PROC: B210YZZ Fluoroscopy of Single Coronary Artery using Other Contrast (ICD-10-PCS; 2020-02-24)
DX: T82.867A Thrombosis due to cardiac prosthetic devices, implants and grafts, initial encounter (principal); A41.9 Sepsis, unspecified organism; G93.41 Metabolic encephalopathy; N17.9 Acute kidney failure, unspecified; E88.09 Other disorders of plasma-protein metabolism, not elsewhere classified; E11.42 Type 2 diabetes mellitus with diabetic polyneuropathy; G25.3 Myoclonus; E87.1 Hypo-osmolality and hyponatremia; N18.30 Chronic kidney disease, stage 3 unspecified; I25.10 Atherosclerotic heart disease of native coronary artery without angina pectoris; E66.9 Obesity, unspecified; E78.5 Hyperlipidemia, unspecified; E87.6 Hypokalemia; E11.22 Type 2 diabetes mellitus with diabetic chronic kidney disease; E11.51 Type 2 diabetes mellitus with diabetic peripheral angiopathy without gangrene; E11.649 Type 2 diabetes mellitus with hypoglycemia without coma; E11.69 Type 2 diabetes mellitus with other specified complication; E87.3 Alkalosis; F17.200 Nicotine dependence, unspecified, uncomplicated; I13.0 Hypertensive heart and chronic kidney disease with heart failure and stage 1 through stage 4 chronic kidney disease, or unspecified chronic kidney disease; I50.9 Heart failure, unspecified; K76.9 Liver disease, unspecified; K92.2 Gastrointestinal hemorrhage, unspecified; M86.60 Other chronic osteomyelitis, unspecified site; Q66.00 Congenital talipes equinovarus, unspecified foot; Z79.02 Long term (current) use of antithrombotics/antiplatelets; Z79.84 Long term (current) use of oral hypoglycemic drugs; Z79.899 Other long term (current) drug therapy; Z82.49 Family history of ischemic heart disease and other diseases of the circulatory system; Z86.73 Personal history of transient ischemic attack (TIA), and cerebral infarction without residual deficits; Z83.3 Family history of diabetes mellitus; Z95.1 Presence of aortocoronary bypass graft; Z91.030 Bee allergy status; T82.855A Stenosis of coronary artery stent, initial encounter; Y83.2 Surgical operation with anastomosis, bypass or graft as the cause of abnormal reaction of the patient, or of later complication, without mention of misadventure at the time of the procedure; Y92.098 Other place in other non-institutional residence as the place of occurrence of the external cause; I21.29 ST elevation (STEMI) myocardial infarction involving other sites
CPT/HCPCS: 36415; 36600; 70450; 70551; 71045; 73700; 80048; 80053; 80202; 80320; 82140; 82550; 82728; 82805; 82962; 83605; 83615; 83735; 83874; 83880; 84100; 84484; 84550; 85025; 85379; 85610; 85730; 86141; 86850; 86900; 86901; 87040; 87081; 87426; 87493; 92937; 93005; 93306; 93459; 94640; 97110; 97163; 97530; 99152; 99153; 99291; C9113; G0378; J0696; J1815; J2185; J2250; J2405; P9047; Q9967

== ENCOUNTER 2020-03-30 02:34 | Inpatient (IN) | payer OTHER ==
[~2020-03-30] VITALS: Ht 172.7 cm; Wt 105.8 kg
[~2020-03-30 02:34] MED LIST changes: +ATOR40TA52 PO; -GABA100C9 PO; +GABA300C10 PO; -LEVO750T8 PO; +LISI-716 PO; -METF-370 PO; +METF-929 PO; +PANT40T PO
[2020-03-30] MEDS ORDERED: ASPirin 81 mg TAB PO ONE (07:30)
[2020-03-30 09:10] LABS: Basophils # (auto) 0.1 10 ^3/uL (0-0.2); Basophils % (auto) 0.9 % (0.0-2.0); Eosinophils # (auto) 0 10 ^3/uL (0-0.8); Eosinophils % (auto) 0.3 % (0.0-7.0); Hematocrit 33.3 % (41.0-53.0); Hemoglobin 10.9 g/dL (13.5-17.5); Lymphocytes # (auto) 1.8 10 ^3/uL (0.4-5.4); Lymphocytes % (auto) 15.3 % (10.0-50.0); Mean Corpuscular Hemoglobin 28.1 pg (28.0-32.0); Mean Corpuscular Hgb Conc. 32.7 g/dL (32.0-36.0); Monocytes # (auto) 0.5 10 ^3/uL (0-1.3); Monocytes % (auto) 4.4 % (0.0-12.0); Neutrophils # (auto) 9.1 10 ^3/uL (1.6-8.6); Neutrophils % (auto) 79.1 % (37.0-80.0); Nucleated Red Blood Cells % 0.3 %; Red Blood Cells 3.88 10^6/uL (4.5-5.90); Red Cell Distribution Width 15.7 % (11.8-14.3); White Blood Cell 11.5 10^3/uL (4.4-10.8)
[2020-03-30 09:24] LABS: INR 1.43 (0.9-1.15); Partial Thromboplastin Time 31.6 sec (23.0-31.2)
[2020-03-30 09:31] LABS: Albumin 2.5 g/dL (3.4-5.0); Calcium 8.8 mg/dL (8.5-10.1); Potassium 4.3 mmol/L (3.5-5.1)
[2020-03-30 10:40] LABS: BUN/Creatinine Ratio 26.3; Bilirubin, Total 2.2 mg/dL (0.2-1.0)
[2020-03-30] MEDS ORDERED: CLINDAMYCIN 600MG IV 50 ML IV ONE (11:45)
[2020-03-30] MEDS ORDERED: PIPERACILLIN-TAZOB 3.375GM 100 ML IV ONE (11:45)
[2020-03-30] MEDS ORDERED: MORPHINE SULFATE INJECTION 2 MG/ML SYRG IV PRN ×2 (13:45→15:00)
[2020-03-30] MEDS ORDERED: NITROGLYCERIN 0.4 MG SL TAB SL PRN ×2 (13:45→15:00)
[2020-03-30] MEDS ORDERED: ACETAMINOPHEN 325 MG TAB PO PRN (15:00)
[2020-03-30] MEDS ORDERED: ALUM & MAG HYDROX-SIMETH LIQ(MAALOX) 30 ML PO PRN (15:00)
[2020-03-30] MEDS ORDERED: DOCUSATE SOD 100 MG CAP PO PRN (15:00)
[2020-03-30] MEDS ORDERED: LACTATED RINGER'S 1,000 ML IV ONE (15:00)
[2020-03-30] MEDS ORDERED: ALBUMIN 25% 100 ML IV ONE (15:00)
[2020-03-30] MEDS ORDERED: HYDROcodone-ACET 5/325MG TAB PO PRN (15:00)
[2020-03-30] MEDS ORDERED: LORazepam 0.5 MG TAB PO PRN (15:00)
[2020-03-30] MEDS ORDERED: CARV3.1240 PO (15:18)
[2020-03-30] MEDS ORDERED: INSU100I27 SC (15:22)
[2020-03-30] MEDS ORDERED: INSU1INJ3 SC (15:22)
[2020-03-30] MEDS ORDERED: AZIT250T9 PO (15:22)
[2020-03-30 17:22] LABS: Cholesterol 80 mg/dL (< 200)
[2020-03-30 17:23] LABS: % Iron Saturation 108.6 % (20-55)
[2020-03-30 17:31] LABS: HDL Cholesterol 23 mg/dL (40-59); LDL Cholesterol 37 mg/dL (< 100); Triglycerides 118 mg/dL (< 150)
[2020-03-30] MEDS: SODIUM CHLORIDE 0.9% 1,000 ML IV SCH (17:50)
[2020-03-30] MEDS: FUROSEMIDE 20 MG/2 ML VIAL IV SCH (18:00)
[2020-03-30 18:01] LABS: CRP High Sensitivity > 19.0 mg/dL (< 0.3)
[2020-03-30] MEDS ORDERED: ATORVASTATIN 20 MG TAB PO SCH (22:00)
[2020-03-30] MEDS: ALBUMIN 25% 100 ML IV SCH (22:22)
[2020-03-30] MEDS: CLINDAMYCIN 600MG IV 50 ML IV SCH (22:22)
[2020-03-30] MEDS: ENOXAPARIN SOD 60 MG/0.6 ML SYRINGE SC SCH (22:22)
[2020-03-30] MEDS: CEFEPIME 2 GM in SODIUM CHL 0.9% 50 ML IV SCH (22:32)
[2020-03-31] MEDS: ONDANSETRON HCL 4 MG/2 ML VIAL IV PRN (04:33)
[2020-03-31] MEDS ORDERED: DEXTROSE (50%) 50ML SYRG IV PRN (05:15)
[2020-03-31] MEDS: FUROSEMIDE 20 MG/2 ML VIAL IV SCH ×2 (06:00→18:33)
[2020-03-31] MEDS: GABAPENTIN 300 MG CAP PO SCH ×3 (06:00→23:41)
[2020-03-31] MEDS: InsuLIN REG 1unit/0.01ml Soln (100units/ml) SC SCH ×4 (08:11→22:30)
[2020-03-31] MEDS: ALBUMIN 25% 100 ML IV SCH ×2 (09:16→14:29)
[2020-03-31] MEDS: ACCU-CHEK COMFORT CURVE STRIP VI SCH ×4 (09:17→22:30)
[2020-03-31] MEDS: CEFEPIME 2 GM in SODIUM CHL 0.9% 50 ML IV SCH ×2 (09:17→18:33)
[2020-03-31] MEDS: CLINDAMYCIN 600MG IV 50 ML IV SCH ×3 (09:17→23:42)
[2020-03-31] MEDS: ASPirin 81 mg TAB PO SCH (10:45)
[2020-03-31] MEDS: CLOPIDOGREL BISULFATE 75 MG TAB PO SCH (10:45)
[2020-03-31] MEDS: FAMOTIDINE (10MG/ML) 2ML VL IV SCH ×2 (10:45→23:42)
[2020-03-31] MEDS: CARVEDILOL 3.125 MG TAB PO SCH ×2 (10:45→23:43)
[2020-03-31] MEDS: ENOXAPARIN SOD 60 MG/0.6 ML SYRINGE SC SCH ×2 (10:45→23:41)
[2020-03-31] MEDS: LISINOPRIL 5 MG TAB PO SCH (10:45)
[2020-03-31] MEDS: SODIUM CHLORIDE 0.9% 1,000 ML IV SCH (11:06)
[2020-03-31 15:41] LABS: Urine Bacteria FEW /hpf (None Seen); Urine Blood Negative /uL (Negative); Urine Budding Yeast FEW /hpf (None Seen); Urine Hyaline Cast FEW /lpf (0 - 2); Urine WBC 8 /hpf (0 - 3)
[2020-03-31 15:51] LABS: Amphetamine Screen, Urine NEGATIVE (NEGATIVE); Barbiturate Scree,Urine NEGATIVE (NEGATIVE); Benzodiazephine Screen, Urine NEGATIVE (NEGATIVE); Cannabinoid Screen, Urine NEGATIVE (NEGATIVE); Cocaine Screen, Urine NEGATIVE (NEGATIVE); Opiate Scree,Urine NEGATIVE (NEGATIVE); Phencyclidine Screen, Urine NEGATIVE (NEGATIVE)
[2020-03-31] MEDS ORDERED: INSULIN LANTUS (GLARGINE) 1 /0.01ml (100units/ml) SC SCH (22:00)
[2020-04-01] MEDS ORDERED: ALBUMIN 5% 250 ML IV ONE (03:00)
[2020-04-01] MEDS: CEFEPIME 2 GM in SODIUM CHL 0.9% 50 ML IV SCH ×2 (06:00→19:49)
[2020-04-01] MEDS: ACCU-CHEK COMFORT CURVE STRIP VI SCH ×4 (06:48→21:53)
[2020-04-01] MEDS: InsuLIN REG 1unit/0.01ml Soln (100units/ml) SC SCH ×5 (06:49→21:51)
[2020-04-01] MEDS: LISINOPRIL 5 MG TAB PO SCH (10:00)
[2020-04-01] MEDS: CARVEDILOL 3.125 MG TAB PO SCH (10:00)
[2020-04-01 11:11] LABS: Hepatitis A Ab IgM Negative
[2020-04-01 11:12] LABS: Hepatitis B Core IgM Negative; Hepatitis B Surface Antigen Negative (Negative); Hepatitis C Antibody Negative (Negative)
[2020-04-01] MEDS: ASPirin 81 mg TAB PO SCH (12:02)
[2020-04-01] MEDS: FAMOTIDINE (10MG/ML) 2ML VL IV SCH ×2 (12:02→23:02)
[2020-04-01] MEDS: CLINDAMYCIN 600MG IV 50 ML IV SCH ×3 (12:02→23:02)
[2020-04-01] MEDS: FUROSEMIDE 20 MG/2 ML VIAL IV SCH (12:03)
[2020-04-01] MEDS: CLOPIDOGREL BISULFATE 75 MG TAB PO SCH (12:03)
[2020-04-01] MEDS: GABAPENTIN 300 MG CAP PO SCH (12:03)
[2020-04-01] MEDS: ENOXAPARIN SOD 60 MG/0.6 ML SYRINGE SC SCH (12:03)
[2020-04-01 13:00] LABS: Basophils # (auto) 0.1 10 ^3/uL (0-0.2); Eosinophils # (auto) 0.1 10 ^3/uL (0-0.8); Eosinophils % (auto) 0.8 % (0.0-7.0); Hemoglobin 10.3 g/dL (13.5-17.5)
[2020-04-01 13:02] LABS: Basophils % (auto) 0.3 % (0.0-2.0); Hematocrit 33.6 % (41.0-53.0); Lymphocytes # (auto) 3.3 10 ^3/uL (0.4-5.4); Lymphocytes % (auto) 18.6 % (10.0-50.0); Mean Corpuscular Hemoglobin 29.1 pg (28.0-32.0); Mean Corpuscular Hgb Conc. 30.8 g/dL (32.0-36.0); Mean Corpuscular Volume 94.6 fL (80.0-100.0); Monocytes # (auto) 0.8 10 ^3/uL (0-1.3); Monocytes % (auto) 4.7 % (0.0-12.0); Neutrophils # (auto) 13.2 10 ^3/uL (1.6-8.6); Neutrophils % (auto) 75.6 % (37.0-80.0); Nucleated Red Blood Cells % 3.1 %; Red Blood Cells 3.55 10^6/uL (4.5-5.90); Red Cell Distribution Width 16.5 % (11.8-14.3); White Blood Cell 17.5 10^3/uL (4.4-10.8)
[2020-04-01] MEDS ORDERED: SODIUM CHLORIDE 0.9% 1,000 ML IV SCH (13:30)
[2020-04-01 13:53] LABS: Anion Gap 16 (5-15); Carbon Dioxide 12 mmol/L (21-32); Chloride 107 mmol/L (98-107); Potassium 5.2 mmol/L (3.5-5.1); Sodium 135 mmol/L (136-145)
[2020-04-01 13:54] LABS: Alanine Aminotransferase 813 U/L (16-61); Alkaline Phosphatase 187 U/L (45-117); Aspartate Aminotransferase 759 U/L (15-37); BUN/Creatinine Ratio 28.8; Bilirubin, Total 2.7 mg/dL (0.2-1.0); Calcium 7.6 mg/dL (8.5-10.1); GFR African American 26 mL/min; GFR Non-African American 21 mL/min; Glucose 71 mg/dL (74-106)
[2020-04-01 13:55] LABS: Albumin 2.9 g/dL (3.4-5.0); Magnesium 2.2 mg/dL (1.6-2.6)
[2020-04-01 14:00] LABS: Blood Urea Nitrogen 92 mg/dL (7-18)
[2020-04-01] MEDS: MORPHINE SULFATE INJECTION 2 MG/ML SYRG IV PRN (14:18)
[2020-04-01] MEDS: ONDANSETRON HCL 4 MG/2 ML VIAL IV PRN (14:19)
[2020-04-01] MEDS ORDERED: ALBUTEROL SULF 2.5 MG/0.5ML(0.5%) NEB SOLN NEB ONE (14:45)
[2020-04-01] MEDS ORDERED: SODIUM BICARBONATE 8.4% INJ 50ML SYRINGE IV ONE (14:45)
[2020-04-01] MEDS ORDERED: SODIUM ZIRCONIUM CYCL 10 GM PAK PO ONE (14:45)
[2020-04-01] MEDS ORDERED: SODIUM CHLORIDE 0.9% 250 ML IV ONE (14:45)
[2020-04-01] MEDS ORDERED: DEXTROSE (50%) 50ML SYRG IV PRN (14:45)
[2020-04-01] MEDS: NOREPINEPHRINE 8 MG/250ML KIT 250 ML IV SCH (15:14)
[2020-04-01] MEDS ORDERED: BUMETANIDE 2.5mg/10ml (0.25 mg/ml) INJ IV ONE (16:30)
[2020-04-01] MEDS: SODIUM BICARBONATE 50ML VIAL 75 ML in D5W 5% 1,000 ML IV SCH (17:10)
[2020-04-01] MEDS: INSULIN LANTUS (GLARGINE) 1 /0.01ml (100units/ml) SC SCH (21:54)
[2020-04-01] MEDS: SODIUM ZIRCONIUM CYCL 10 GM PAK PO SCH (23:02)
[2020-04-02] MEDS: SODIUM BICARBONATE 50ML VIAL 75 ML in D5W 5% 1,000 ML IV SCH ×3 (03:18→23:00)
[2020-04-02] MEDS: CLINDAMYCIN 600MG IV 50 ML IV SCH ×3 (06:14→22:00)
[2020-04-02] MEDS: SODIUM ZIRCONIUM CYCL 10 GM PAK PO SCH ×3 (06:43→22:00)
[2020-04-02] MEDS: ACCU-CHEK COMFORT CURVE STRIP VI SCH ×4 (06:53→22:00)
[2020-04-02] MEDS: InsuLIN REG 1unit/0.01ml Soln (100units/ml) SC SCH ×5 (06:57→22:00)
[2020-04-02] MEDS: CEFEPIME 2 GM in SODIUM CHL 0.9% 50 ML IV SCH ×2 (07:15→19:13)
[2020-04-02 07:50] LABS: Basophils # (auto) 0.1 10 ^3/uL (0-0.2); Basophils % (auto) 0.8 % (0.0-2.0); Eosinophils # (auto) 0 10 ^3/uL (0-0.8); Eosinophils % (auto) 0.2 % (0.0-7.0); Hematocrit 28.2 % (41.0-53.0); Hemoglobin 9.3 g/dL (13.5-17.5); Mean Corpuscular Hemoglobin 28.2 pg (28.0-32.0); Mean Corpuscular Volume 85.3 fL (80.0-100.0); Monocytes # (auto) 0.5 10 ^3/uL (0-1.3); Monocytes % (auto) 3.5 % (0.0-12.0); Neutrophils # (auto) 12.7 10 ^3/uL (1.6-8.6); Neutrophils % (auto) 82.5 % (37.0-80.0); Nucleated Red Blood Cells % 2.4 %; Red Blood Cells 3.31 10^6/uL (4.5-5.90); Red Cell Distribution Width 15.9 % (11.8-14.3); White Blood Cell 15.5 10^3/uL (4.4-10.8)
[2020-04-02 08:10] LABS: Albumin 2.7 g/dL (3.4-5.0); Calcium 7.4 mg/dL (8.5-10.1); Potassium 4.9 mmol/L (3.5-5.1)
[2020-04-02 08:16] LABS: INR 2.16 (0.9-1.15)
[2020-04-02 08:18] LABS: BUN/Creatinine Ratio 31.7; Bilirubin, Total 2.8 mg/dL (0.2-1.0); Total Protein 6.6 g/dL (6.4-8.2)
[2020-04-02] MEDS: CLOPIDOGREL BISULFATE 75 MG TAB PO SCH (08:59)
[2020-04-02] MEDS: ENOXAPARIN SOD 30 MG/0.3 ML SYRINGE SC SCH (08:59)
[2020-04-02] MEDS: ASPirin 81 mg TAB PO SCH (08:59)
[2020-04-02] MEDS: FAMOTIDINE (10MG/ML) 2ML VL IV SCH ×2 (08:59→22:00)
[2020-04-02] MEDS ORDERED: BUMETANIDE 2.5mg/10ml (0.25 mg/ml) INJ IV ONE (10:30)
[2020-04-02] MEDS: NOREPINEPHRINE 8 MG/250ML KIT 250 ML IV SCH (14:15)
[2020-04-02] MEDS: INSULIN LANTUS (GLARGINE) 1 /0.01ml (100units/ml) SC SCH (22:00)
[2020-04-03] MEDS: SODIUM ZIRCONIUM CYCL 10 GM PAK PO SCH ×2 (05:05→15:48)
[2020-04-03] MEDS: CLINDAMYCIN 600MG IV 50 ML IV SCH ×3 (05:05→22:01)
[2020-04-03] MEDS: CEFEPIME 2 GM in SODIUM CHL 0.9% 50 ML IV SCH ×2 (05:05→17:42)
[2020-04-03] MEDS: InsuLIN REG 1unit/0.01ml Soln (100units/ml) SC SCH ×5 (06:43→23:15)
[2020-04-03] MEDS: ACCU-CHEK COMFORT CURVE STRIP VI SCH ×4 (06:43→23:08)
[2020-04-03 07:39] LABS: Calcium 7.8 mg/dL (8.5-10.1); Potassium 3.9 mmol/L (3.5-5.1)
[2020-04-03 07:43] LABS: Albumin 2.5 g/dL (3.4-5.0); BUN/Creatinine Ratio 41.4
[2020-04-03 07:46] LABS: Bilirubin, Total 2.4 mg/dL (0.2-1.0); Total Protein 6.2 g/dL (6.4-8.2)
[2020-04-03] MEDS: ENOXAPARIN SOD 30 MG/0.3 ML SYRINGE SC SCH (12:26)
[2020-04-03] MEDS: CLOPIDOGREL BISULFATE 75 MG TAB PO SCH (12:26)
[2020-04-03] MEDS: ASPirin 81 mg TAB PO SCH (12:26)
[2020-04-03] MEDS: FAMOTIDINE (10MG/ML) 2ML VL IV SCH ×2 (12:26→22:01)
[2020-04-03] MEDS ORDERED: FLUCONAZOLE 200MG/100ML 100 ML IV ONE (12:45)
[2020-04-03] MEDS: SODIUM BICARBONATE 50ML VIAL 75 ML in D5W 5% 1,000 ML IV SCH ×2 (13:22→19:36)
[2020-04-03] MEDS: NOREPINEPHRINE 8 MG/250ML KIT 250 ML IV SCH (14:15)
[2020-04-03] MEDS: INSULIN LANTUS (GLARGINE) 1 /0.01ml (100units/ml) SC SCH (23:14)
[2020-04-04] MEDS: CLINDAMYCIN 600MG IV 50 ML IV SCH ×3 (06:24→23:26)
[2020-04-04] MEDS: InsuLIN REG 1unit/0.01ml Soln (100units/ml) SC SCH ×5 (06:49→22:55)
[2020-04-04] MEDS: ACCU-CHEK COMFORT CURVE STRIP VI SCH ×4 (06:50→22:56)
[2020-04-04 07:39] LABS: Basophils # (auto) 0 10 ^3/uL (0-0.2); Basophils % (auto) 0.3 % (0.0-2.0); Eosinophils # (auto) 0.3 10 ^3/uL (0-0.8); Eosinophils % (auto) 3.1 % (0.0-7.0); Hematocrit 29.6 % (41.0-53.0); Hemoglobin 10.1 g/dL (13.5-17.5); Lymphocytes # (auto) 0.9 10 ^3/uL (0.4-5.4); Lymphocytes % (auto) 10.3 % (10.0-50.0); Mean Corpuscular Hemoglobin 28.8 pg (28.0-32.0); Mean Corpuscular Volume 84.7 fL (80.0-100.0); Monocytes # (auto) 0.4 10 ^3/uL (0-1.3); Monocytes % (auto) 4.5 % (0.0-12.0); Neutrophils % (auto) 81.8 % (37.0-80.0); Nucleated Red Blood Cells % 0.4 %; Red Blood Cells 3.49 10^6/uL (4.5-5.90); Red Cell Distribution Width 16.3 % (11.8-14.3); White Blood Cell 8.6 10^3/uL (4.4-10.8)
[2020-04-04 07:58] LABS: Albumin 2.4 g/dL (3.4-5.0); Calcium 8.2 mg/dL (8.5-10.1); Potassium 3.7 mmol/L (3.5-5.1)
[2020-04-04 08:00] LABS: BUN/Creatinine Ratio 43.1
[2020-04-04 08:03] LABS: Bilirubin, Total 2.2 mg/dL (0.2-1.0); Total Protein 6.7 g/dL (6.4-8.2)
[2020-04-04] MEDS: CEFEPIME 2 GM in SODIUM CHL 0.9% 50 ML IV SCH ×2 (08:55→17:25)
[2020-04-04] MEDS: ASPirin 81 mg TAB PO SCH (09:00)
[2020-04-04] MEDS: CLOPIDOGREL BISULFATE 75 MG TAB PO SCH (09:00)
[2020-04-04] MEDS: FAMOTIDINE (10MG/ML) 2ML VL IV SCH ×2 (09:00→22:00)
[2020-04-04] MEDS: ENOXAPARIN SOD 30 MG/0.3 ML SYRINGE SC SCH (09:00)
[2020-04-04] MEDS: FLUCONAZOLE 200MG/100ML 100 ML IV SCH (09:00)
[2020-04-04] MEDS: SODIUM BICARBONATE 50ML VIAL 75 ML in D5W 5% 1,000 ML IV SCH ×2 (12:09→12:20)
[2020-04-04] MEDS: INSULIN LANTUS (GLARGINE) 1 /0.01ml (100units/ml) SC SCH (22:57)
[2020-04-04] MEDS ORDERED: MORPHINE SULFATE INJECTION 2 MG/ML SYRG ONE (23:08)
[2020-04-04] MEDS ORDERED: CLINDAMYCIN 600MG IV 50 ML IV ONE (23:08)
[2020-04-04] MEDS ORDERED: ONDANSETRON HCL 4 MG/2 ML VIAL ONE (23:08)
[2020-04-04] MEDS: MORPHINE SULFATE INJECTION 2 MG/ML SYRG IV PRN (23:26)
[2020-04-04] MEDS: ONDANSETRON HCL 4 MG/2 ML VIAL IV PRN (23:27)
[2020-04-05] MEDS: SODIUM BICARBONATE 50ML VIAL 75 ML in D5W 5% 1,000 ML IV SCH ×2 (04:04→16:15)
[2020-04-05] MEDS: CLINDAMYCIN 600MG IV 50 ML IV SCH ×4 (06:00→21:27)
[2020-04-05] MEDS: ACCU-CHEK COMFORT CURVE STRIP VI SCH ×4 (06:21→21:12)
[2020-04-05] MEDS: CEFEPIME 2 GM in SODIUM CHL 0.9% 50 ML IV SCH ×2 (06:22→17:33)
[2020-04-05] MEDS: InsuLIN REG 1unit/0.01ml Soln (100units/ml) SC SCH ×5 (06:23→21:31)
[2020-04-05 06:52] LABS: Basophils # (auto) 0 10 ^3/uL (0-0.2); Basophils % (auto) 0.6 % (0.0-2.0); Eosinophils # (auto) 0.2 10 ^3/uL (0-0.8); Eosinophils % (auto) 2.6 % (0.0-7.0); Hematocrit 29.8 % (41.0-53.0); Hemoglobin 9.8 g/dL (13.5-17.5); Lymphocytes # (auto) 0.8 10 ^3/uL (0.4-5.4); Lymphocytes % (auto) 11.9 % (10.0-50.0); Mean Corpuscular Hemoglobin 28.1 pg (28.0-32.0); Mean Corpuscular Hgb Conc. 32.7 g/dL (32.0-36.0); Monocytes # (auto) 0.4 10 ^3/uL (0-1.3); Monocytes % (auto) 5.6 % (0.0-12.0); Neutrophils # (auto) 5.6 10 ^3/uL (1.6-8.6); Neutrophils % (auto) 79.3 % (37.0-80.0); Nucleated Red Blood Cells % 0.2 %; Red Blood Cells 3.47 10^6/uL (4.5-5.90); Red Cell Distribution Width 16.8 % (11.8-14.3); White Blood Cell 7.1 10^3/uL (4.4-10.8)
[2020-04-05 07:02] LABS: INR 1.34 (0.9-1.15)
[2020-04-05 07:44] LABS: Potassium 3.8 mmol/L (3.5-5.1)
[2020-04-05] MEDS ORDERED: CLINDAMYCIN 900MG IV 50 ML IV ONE (07:50)
[2020-04-05] MEDS: CLOPIDOGREL BISULFATE 75 MG TAB PO SCH (08:04)
[2020-04-05] MEDS: FAMOTIDINE (10MG/ML) 2ML VL IV SCH ×2 (08:04→21:27)
[2020-04-05] MEDS: FLUCONAZOLE 200MG/100ML 100 ML IV SCH (08:04)
[2020-04-05] MEDS: ASPirin 81 mg TAB PO SCH (08:04)
[2020-04-05] MEDS: ENOXAPARIN SOD 40 MG/0.4 ML SYRINGE SC SCH (08:05)
[2020-04-05 08:33] LABS: Albumin 2.3 g/dL (3.4-5.0); BUN/Creatinine Ratio 39.7; Calcium 8.2 mg/dL (8.5-10.1); Magnesium 1.9 mg/dL (1.6-2.6)
[2020-04-05 08:43] LABS: CRP High Sensitivity 11.7 mg/dL (< 0.3); Total Protein 6.6 g/dL (6.4-8.2)
[2020-04-05] MEDS ORDERED: MAGNESIUM SULFATE 1GM/100ML 100 ML IV ONE ×2 (16:13→16:15)
[2020-04-05] MEDS ORDERED: FUROSEMIDE 40 MG/4 ML VIAL ONE (16:13)
[2020-04-05] MEDS ORDERED: FUROSEMIDE 40 MG/4 ML VIAL IV ONE (16:15)
[2020-04-05] MEDS ORDERED: MEROPENEM 1GM IVPB 100 ML IV ONE (17:11)
[2020-04-05] MEDS: INSULIN LANTUS (GLARGINE) 1 /0.01ml (100units/ml) SC SCH (21:32)
[2020-04-06] MEDS: CLINDAMYCIN 600MG IV 50 ML IV SCH ×3 (05:31→21:53)
[2020-04-06] MEDS: CEFEPIME 2 GM in SODIUM CHL 0.9% 50 ML IV SCH ×2 (05:31→19:02)
[2020-04-06] MEDS: ACCU-CHEK COMFORT CURVE STRIP VI SCH ×4 (06:35→21:54)
[2020-04-06] MEDS: InsuLIN REG 1unit/0.01ml Soln (100units/ml) SC SCH ×5 (06:35→21:54)
[2020-04-06 07:33] LABS: Potassium 3.8 mmol/L (3.5-5.1)
[2020-04-06 08:05] LABS: Albumin 2.2 g/dL (3.4-5.0); BUN/Creatinine Ratio 31.3; Bilirubin, Total 1.7 mg/dL (0.2-1.0); Calcium 8.3 mg/dL (8.5-10.1); Total Protein 6.9 g/dL (6.4-8.2)
[2020-04-06] MEDS: CLOPIDOGREL BISULFATE 75 MG TAB PO SCH (10:00)
[2020-04-06] MEDS: ASPirin 81 mg TAB PO SCH (10:00)
[2020-04-06] MEDS: ENOXAPARIN SOD 40 MG/0.4 ML SYRINGE SC SCH (10:00)
[2020-04-06] MEDS: FLUCONAZOLE 200MG/100ML 100 ML IV SCH (10:00)
[2020-04-06] MEDS: FAMOTIDINE (10MG/ML) 2ML VL IV SCH ×2 (10:00→21:54)
[2020-04-06] MEDS: SODIUM BICARBONATE 50ML VIAL 75 ML in D5W 5% 1,000 ML IV SCH (10:47)
[2020-04-06] MEDS ORDERED: DOBUTamine 1000MCG/ML 250 ML IV SCH (12:00)
[2020-04-06] MEDS ORDERED: FUROSEMIDE 20 MG/2 ML VIAL IV ONE (12:00)
[2020-04-06] MEDS: DOBUTamine 1000MCG/ML 250 ML IV SCH (15:42)
[2020-04-06 16:48] VITALS: BP 120/77
[2020-04-06 17:00] VITALS: BP 120/77
[2020-04-06] MEDS: INSULIN LANTUS (GLARGINE) 1 /0.01ml (100units/ml) SC SCH (21:55)
[2020-04-07] VITALS: BP 116/78
[2020-04-07] MEDS: CLINDAMYCIN 600MG IV 50 ML IV SCH ×2 (05:48→13:28)
[2020-04-07] MEDS: CEFEPIME 2 GM in SODIUM CHL 0.9% 50 ML IV SCH ×2 (06:26→17:41)
[2020-04-07] MEDS: InsuLIN REG 1unit/0.01ml Soln (100units/ml) SC SCH ×3 (06:27→17:31)
[2020-04-07] MEDS: ACCU-CHEK COMFORT CURVE STRIP VI SCH ×3 (06:28→17:01)
[2020-04-07 06:40] LABS: Hematocrit 30.9 % (41.0-53.0); Hemoglobin 10.1 g/dL (13.5-17.5)
[2020-04-07 06:54] LABS: Calcium 8.2 mg/dL (8.5-10.1); Potassium 3.9 mmol/L (3.5-5.1)
[2020-04-07 06:59] LABS: Bilirubin, Total 1.5 mg/dL (0.2-1.0); Total Protein 6.8 g/dL (6.4-8.2)
[2020-04-07 08:00] VITALS: BP 119/87
[2020-04-07] MEDS ORDERED: ENOXAPARIN SOD 100 MG/1 ML SYRINGE SC SCH (10:00)
[2020-04-07] MEDS ORDERED: FUROSEMIDE 20 MG/2 ML VIAL IV SCH (10:00)
[2020-04-07] MEDS: CLOPIDOGREL BISULFATE 75 MG TAB PO SCH (10:22)
[2020-04-07] MEDS: ASPirin 81 mg TAB PO SCH (10:22)
[2020-04-07] MEDS: FLUCONAZOLE 200MG/100ML 100 ML IV SCH (10:22)
[2020-04-07] MEDS: FAMOTIDINE (10MG/ML) 2ML VL IV SCH (10:22)
[2020-04-07] MEDS: DOBUTamine 1000MCG/ML 250 ML IV SCH (13:06)
[2020-04-07 16:31] VITALS: BP 112/72
[2020-04-07 20:00] VITALS: BP 107/65
[2020-04-07 22:00] VITALS: BP 131/71
[2020-04-08] MEDS: FAMOTIDINE (10MG/ML) 2ML VL IV SCH ×2 (00:28→12:10)
[2020-04-08] MEDS: FUROSEMIDE 20 MG/2 ML VIAL IV SCH ×2 (00:32→12:10)
[2020-04-08] MEDS: POTASSIUM CHL 10 Meq TABLET PO SCH ×2 (00:33→12:10)
[2020-04-08] MEDS: CLINDAMYCIN 600MG IV 50 ML IV SCH ×2 (00:34→06:32)
[2020-04-08] MEDS: ACCU-CHEK COMFORT CURVE STRIP VI SCH ×4 (00:34→16:57)
[2020-04-08] MEDS: DOBUTamine 1000MCG/ML 250 ML IV SCH ×2 (02:17→18:42)
[2020-04-08] MEDS: INSULIN LANTUS (GLARGINE) 1 /0.01ml (100units/ml) SC SCH (02:19)
[2020-04-08] MEDS: InsuLIN REG 1unit/0.01ml Soln (100units/ml) SC SCH ×5 (02:20→17:00)
[2020-04-08 05:30] VITALS: BP 115/76
[2020-04-08 06:29] LABS: Potassium 3.5 mmol/L (3.5-5.1)
[2020-04-08 06:37] LABS: Albumin 1.9 g/dL (3.4-5.0); Bilirubin, Total 1.4 mg/dL (0.2-1.0); Calcium 8.4 mg/dL (8.5-10.1); Magnesium 1.7 mg/dL (1.6-2.6); Total Protein 6.8 g/dL (6.4-8.2)
[2020-04-08 06:48] LABS: INR 1.29 (0.9-1.15)
[2020-04-08] MEDS: CEFEPIME 2 GM in SODIUM CHL 0.9% 50 ML IV SCH (08:19)
[2020-04-08 09:00] VITALS: BP 137/98
[2020-04-08] MEDS ORDERED: ENOXAPARIN SOD 40 MG/0.4 ML SYRINGE SC SCH (10:00)
[2020-04-08] MEDS: FLUCONAZOLE 200MG/100ML 100 ML IV SCH (12:07)
[2020-04-08] MEDS: ASPirin 81 mg TAB PO SCH (12:10)
[2020-04-08] MEDS: CLOPIDOGREL BISULFATE 75 MG TAB PO SCH (12:11)
[2020-04-08 13:00] VITALS: BP 121/69
[2020-04-08] MEDS ORDERED: POTASSIUM CHL 20 Meq TABLET PO ONE (15:00)
[2020-04-08] MEDS ORDERED: MAGNESIUM SULFATE 1GM/100ML 100 ML IV ONE (15:00)
[2020-04-08 18:42] VITALS: BP 112/66
[2020-04-08] MEDS ORDERED: NOREPINEPHRINE 8 MG/250ML KIT 250 ML IV ONE (21:24)
[2020-04-08] MEDS ORDERED: EPINEPHrine HCL 250 ML IV ONE (21:24)
[2020-04-08] MEDS ORDERED: SODIUM BICARBONATE 8.4% INJ 50ML SYRINGE IV ONE (21:57)
[2020-04-08] MEDS ORDERED: CALCIUM CHLOR(10%) 100MG/ML 10ML SYRINGE IV ONE (21:57)
[2020-04-08] MEDS ORDERED: ATROPINE SULF 1 MG/10ml SYR IM ONE (21:57)
[2020-04-08] MEDS ORDERED: EPINEPHrine HCL 1 MG/10 ML SYRG IV ONE (21:57)
[2020-04-08] MEDS ORDERED: CLINDAMYCIN HCL 150 MG CAP PO SCH (22:00)
[2020-04-09] MEDS ORDERED: FLORASTOR (S. BOULARDII) 250 MG CAP PO SCH (10:00)
[2020-04-09] MEDS ORDERED: levoFLOXacin 500 MG TAB PO SCH (10:00)
== END 2020-04-08 21:58 | DRG 720 ==
LOC: EDBD 02:34 → ER 02:41 → TELE 02:42 → TELE-CENTR 04-06 14:54
PROVIDERS: ADMIT Hospitalist; ATTEND Internal Medicine
PROC: 05H933Z Insertion of Infusion Device into Right Brachial Vein, Percutaneous Approach (ICD-10-PCS; principal; 2020-03-31)
PROC: B54MZZA Ultrasonography of Right Upper Extremity Veins, Guidance (ICD-10-PCS; 2020-03-31)
PROC: 0BH17EZ Insertion of Endotracheal Airway into Trachea, Via Natural or Artificial Opening (ICD-10-PCS; 2020-04-08)
PROC: 5A1935Z Respiratory Ventilation, Less than 24 Consecutive Hours (ICD-10-PCS; 2020-04-08)
DX: A41.9 Sepsis, unspecified organism (principal); U07.1 COVID-19; N17.0 Acute kidney failure with tubular necrosis; G93.41 Metabolic encephalopathy; E43 Unspecified severe protein-calorie malnutrition; I50.43 Acute on chronic combined systolic (congestive) and diastolic (congestive) heart failure; E87.1 Hypo-osmolality and hyponatremia; I25.5 Ischemic cardiomyopathy; K29.70 Gastritis, unspecified, without bleeding; K21.9 Gastro-esophageal reflux disease without esophagitis; N18.9 Chronic kidney disease, unspecified; I25.10 Atherosclerotic heart disease of native coronary artery without angina pectoris; B37.49 Other urogenital candidiasis; E87.2 Acidosis; E87.5 Hyperkalemia; I21.A1 Myocardial infarction type 2; D63.8 Anemia in other chronic diseases classified elsewhere; E11.22 Type 2 diabetes mellitus with diabetic chronic kidney disease; E11.42 Type 2 diabetes mellitus with diabetic polyneuropathy; E11.51 Type 2 diabetes mellitus with diabetic peripheral angiopathy without gangrene; E11.621 Type 2 diabetes mellitus with foot ulcer; E11.65 Type 2 diabetes mellitus with hyperglycemia; E11.69 Type 2 diabetes mellitus with other specified complication; E66.9 Obesity, unspecified; E78.5 Hyperlipidemia, unspecified; F17.200 Nicotine dependence, unspecified, uncomplicated; I08.1 Rheumatic disorders of both mitral and tricuspid valves; L97.409 Non-pressure chronic ulcer of unspecified heel and midfoot with unspecified severity; L97.519 Non-pressure chronic ulcer of other part of right foot with unspecified severity; M19.90 Unspecified osteoarthritis, unspecified site; M21.172 Varus deformity, not elsewhere classified, left ankle; Z68.35 Body mass index [BMI] 35.0-35.9, adult; Z95.1 Presence of aortocoronary bypass graft; R57.9 Shock, unspecified; Z98.61 Coronary angioplasty status; Z79.02 Long term (current) use of antithrombotics/antiplatelets; Z82.49 Family history of ischemic heart disease and other diseases of the circulatory system; Z83.3 Family history of diabetes mellitus; Z79.82 Long term (current) use of aspirin; M86.60 Other chronic osteomyelitis, unspecified site; K76.1 Chronic passive congestion of liver; I11.0 Hypertensive heart disease with heart failure; J12.82 Pneumonia due to coronavirus disease 2019
CPT/HCPCS: 36415; 36600; 70450; 71045; 71250; 73700; 76775; 80053; 80061; 80074; 80307; 81001; 82140; 82805; 82962; 83036; 83540; 83550; 83605; 83690; 83735; 83880; 84443; 84484; 85014; 85018; 85025; 85379; 85610; 85652; 85730; 86141; 87040; 87070; 87081; 87086; 87088; 87205; 87426; 92610; 92950; 94002; G0378; J0171; J1450; J1815; J2185; J2405; J2543; J3490; P9047